=== PATIENT | female | born 1980 | race Caucasian/White ===

== ENCOUNTER → 2017-07-09 | Outpatient (CLI) | payer MEDICAID ==
[~2017-07-09] MED LIST: AMPH15TA2 PO; BACL10TA PO; DIVA500T15 PO; ESCI10TA PO; ESCI10TA55 PO; GABA-488 PO; HYDR-34 PO; HYDR-3714 PO; HYDR50CA3 PO; LITH300C PO; LOXA10CA PO; LOXA5CAP PO; PRAZ1CAP2 PO
--- NOTE | 2017-07-09 09:29 | Diagnostic Imaging Report ---
PROCEDURE: MR imaging cervical spine without contrast. TECHNIQUE: Multiplanar, multisequence MR imaging of the cervical spine was performed without contrast. DATE: 07/09/2017 9:14 AM COMPARISON: MRI cervical spine 01/12/2016. INDICATION: 37-year-old female, neck pain. FINDINGS: There is a mild cervical levocurvature. The anterior to posterior alignment of the cervical spine is unremarkable. There is moderate disc height loss with adjacent degenerative related endplate change at C5-C6. The additional cervical disc heights are well-preserved. The bone marrow signal is otherwise unremarkable. There is no identified abnormal signal within the visualized portions of the cervical spinal cord. C2-C3: There is no disc bulge. The uncovertebral and facet joints are unremarkable. There is no foraminal narrowing. There is no spinal canal stenosis. C3-C4: There is no disc bulge. The uncovertebral and facet joints are unremarkable. There is no foraminal narrowing. There is no spinal canal stenosis. C4-C5: There is no disc bulge. The uncovertebral and facet joints are unremarkable. There is no foraminal narrowing. There is no spinal canal stenosis. C5-C6: There is a small posterior disc osteophyte complex which is eccentric to the left. There are mild left uncovertebral degenerative changes. There is very mild left foraminal narrowing. There is no spinal canal stenosis. C6-C7: There is no disc bulge. The uncovertebral and facet joints are unremarkable. There is no foraminal narrowing. There is no spinal canal stenosis. C7-T1: There is no disc bulge. The uncovertebral and facet joints are unremarkable. There is no foraminal narrowing. There is no spinal canal stenosis. IMPRESSION: 1. C5-C6 small posterior disc osteophyte complex eccentric to the left with mild left uncovertebral degenerative changes causing very mild left foraminal narrowing. Degenerative changes at this level have mildly progressed since 01/12/2016. This is most notable in the region of interval disc height loss and endplate degenerative changes being increased. Dictated by: Dictated on workstation # [id number]
== END ==
LOC: RAD 07:55
PROVIDERS: ATTEND Orthopaedic Surgery
DX: M48.02 Spinal stenosis, cervical region (principal); M47.812 Spondylosis without myelopathy or radiculopathy, cervical region; M50.322 Other cervical disc degeneration at C5-C6 level
CPT/HCPCS: 72141

== ENCOUNTER 2017-09-17 15:52 | Emergency (ER) | payer MEDICAID ==
[~2017-09-17] VITALS: Ht 162.6 cm; Wt 77.1 kg
--- OUTSIDE RECORDS SUMMARY | 2017-09-17 15:58 | XMS REPORT ---
Author FRANCISCO Rudolph [facility] [place] eClinicalWorks Address Unknown Phone Unavailable Care Team Providers Care Business Development Intern Name Role Phone FRANCISCO MCDONNELL CP Unavailable Allergies No Known Allergies Problems Problem Type Condition Code Onset Dates Condition Status Problem PTSD (post-traumatic stress disorder) F43.10 Active Problem ANASTASIA (generalized anxiety disorder) F41.1 Active Problem Bipolar 2 disorder F31.81 Active Problem Intermittent explosive disorder 312.34 Active Problem Generalized anxiety disorder 300.02 Active Medications No Known Medications Results No Known Results Summary Purpose eClinicalWorks Submission
--- OUTSIDE RECORDS SUMMARY | 2017-09-17 15:58 | XMS REPORT ---
Author Author DELONTE LAU [facility] eClinicalWorks Address Unknown Phone Unavailable Care Team Providers Care Manufactured Buildings Supervisor Name Role Phone DELONTE LAU CP Unavailable Allergies No Known Allergies Problems Problem Type Condition Code Onset Dates Condition Status Assessment Other dorsalgia M54.89 Active Problem Intermittent explosive disorder 312.34 Active Problem Generalized anxiety disorder 300.02 Active Problem Other chronic pain G89.29 Active Problem Cigarette nicotine dependence without complication F17.210 Active Problem Lumbago with sciatica, unspecified side M54.40 Active Problem PTSD (post-traumatic stress disorder) F43.10 Active Problem ANASTASIA (generalized anxiety disorder) F41.1 Active Problem Borderline personality disorder in adult F60.3 Active Problem Bipolar 2 disorder F31.81 Active Medications Medication Code System Code Instructions Start Date End Date Status Dosage Hydrocodone-Acetaminophen [facility] 30633222847 7.5-325 MG Orally 3 times a day 1 tablet as needed Results No Known Results Summary Purpose eClinicalWorks Submission
--- OUTSIDE RECORDS SUMMARY | 2017-09-17 15:58 | XMS REPORT ---
Author Author DELONTE LAU [facility] eClinicalWorks Address Unknown Phone Unavailable Care Team Providers Care Qa Auditor Name Role Phone DELONTE LAU CP Unavailable Allergies No Known Allergies Problems Problem Type Condition Code Onset Dates Condition Status Problem Intermittent explosive disorder 312.34 Active Problem [...] Start Date End Date Status Dosage Hydrocodone-Acetaminophen [facility] [id number] 7.5-325 MG Orally 3 times a day 1 tablet as needed Results No Known Results Summary Purpose eClinicalWorks Submission
--- OUTSIDE RECORDS SUMMARY | 2017-09-17 15:58 | XMS REPORT ---
Author Author LAMONTE WOOTEN Organization [facility] Address [address] [place] [address] Care Team Providers Care Metallographer Name Role Phone SUGAR LAMONTE Unavailable PROBLEMS Type Condition ICD9-CM Code VEH32-TD Code Onset Dates Condition Status SNOMED Code Problem Bipolar 2 disorder F31.81 Active 84714424 Problem PTSD (post-traumatic stress disorder) F43.10 Active 44792796 Problem ANASTASIA (generalized anxiety disorder) F41.1 Active 10394557 Problem Chronic post-traumatic stress disorder (PTSD) F43.12 Active 651731329 Problem ADHD (attention deficit hyperactivity disorder), combined type F90.2 Active 20664783 Problem Cigarette nicotine dependence without complication F17.210 Active 63499049 Problem Borderline personality disorder in adult F60.3 Active 74938932 Problem Other chronic pain G89.29 Active 27293926 Problem Lumbago with sciatica, unspecified side M54.40 Active 249490998 ALLERGIES No Information SOCIAL HISTORY Never Assessed PLAN OF CARE VITAL SIGNS MEDICATIONS Medication Instructions Dosage Frequency Start Date End Date Duration Status Hydrocodone-Acetaminophen 7.5-325 MG Orally, must keep appt on 06/17 for more refills 3 times a day 1 tablet 8h May, May, 4 days Active RESULTS No Results PROCEDURES No Known procedures IMMUNIZATIONS No Known Immunizations MEDICAL (GENERAL) HISTORY Type Description Date Medical History attention deficit hyperactivity disorder Medical History depression Medical History back pain Medical History Bipolar 2 disorder, major depressive episode Medical History Unspecified episodic mood disorder Surgical History tubal ligation Surgical History section x2 Surgical History spine surgery (screw, rods, spacer L4-S1) 07/19/2014 Hospitalization History surgeries
--- OUTSIDE RECORDS SUMMARY | 2017-09-17 15:58 | XMS REPORT ---
Author DELONTE Sanchez [facility] eClinicalWorks Address Unknown Phone Unavailable Care Team Providers Care Regulatory Coordinator Name Role Phone DELONTE LAU CP Unavailable Allergies, Adverse Reactions, Alerts Substance Reaction Event Type Penicillin V Potassium Info Not Available Drug Allergy Morphine Sulfate Info Not Available Drug Allergy Cymbalta Anger Drug Allergy Problems Problem Type Condition ICD-9 Code Onset Dates Condition Status Problem Generalized anxiety disorder 300.02 Active Problem Unspecified episodic mood disorder 296.90 Active Problem Intermittent explosive disorder 312.34 Active Assessment Back pain 724.5 Active Medications Medication Code System Code Instructions Start Date End Date Status Dosage Cyclobenzaprine HCl [facility] [address]-53 10 MG Orally Once a day hs Dec 16, 2014 1 tablet HydrOXYzine Pamoate [facility] [address]-41 50 MG Orally 2 times a day for anxiety November 05, 2014 1 capsule Depakote ER [facility] [address]-97 500 MG Orally Once a day November 05, 2014 2 tab Naproxen [facility] [address]-25 375 MG Orally Twice a day Dec 16, 2014 Feb 14, 2015 1 tablet Prazosin HCl [facility] [address]-62 1 MG Orally Once at night for trauma nightmares Nov 26, 2014 1 capsule Hydrocodone-Acetaminophen [facility] [address]-01 7.5-325 MG Orally 3 times a day September 28, 2012 1 tablet as needed Procedures Procedure Coding System Code Date No Charge CPT-4 91771 Dec 16, 2014 Office Visit, Est Pt., Level 2 CPT-4 04501 Dec 16, 2014 Vital Signs Date/Time: Dec 16, 2014 Temperature 98.2 F Weight 172.9 lbs Height 62 in BMI 31.62 Index Blood Pressure Diastolic 88 mmHg Blood Pressure Systolic 132 mmHg Cardiac Monitoring Heart Rate 72 bpm Results No Known Results Summary Purpose eClinicalWorks Submission
--- OUTSIDE RECORDS SUMMARY | 2017-09-17 15:59 | XMS REPORT ---
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 Months Reason: VITAL SIGNS MEDICATIONS Medication Instructions Dosage Frequency Start Date End Date Duration Status Loxapine Succinate 10 MG TAKE TWO CAPSULES BY MOUTH ONCE AT NIGHT Active Prozac 20 mg Orally for depression 1 capsule in the morning Dec, Active HydrOXYzine Pamoate 50 mg Orally 3 times a day for anxiety 1 capsule Active Ibuprofen 800 MG Orally Three times a day, pc 1 tablet 20 Active Baclofen 20 MG TAKE ONE TABLET BY MOUTH THREE TIMES DAILY WITH FOOD OR MILK 30 Active Depakote ER 500 MG TAKE ONE TABLET BY MOUTH TWICE DAILY Active Prazosin HCl 1 MG Orally AT NIGHT FOR TRAUMA NIGHTMARES 3 capsules Active RESULTS No Results PROCEDURES No Known procedures INSTRUCTIONS MEDICATIONS ADMINISTERED No Known Medications MEDICAL (GENERAL) HISTORY Type Description Date Medical History attention deficit hyperactivity disorder Medical History depression Medical History back pain Medical History Bipolar 2 disorder, major depressive episode Medical History Unspecified episodic mood disorder Surgical History tubal ligation Surgical History section x2 Surgical History spine surgery (screw, rods, spacer L4-S1) 07/19/2014 Hospitalization History surgeries
--- OUTSIDE RECORDS SUMMARY | 2017-09-17 15:59 | XMS REPORT ---
Author Author KEITH BRUNO Organization [employer] Address Unknown Phone Unavailable Care Team Providers Care Bulk Tank Car Unloader Name Role Phone KEITH BRUNO CP Unavailable Allergies, Adverse Reactions, Alerts Substance Reaction Event Type Penicillin V Potassium Info Not Available Drug Allergy Morphine Sulfate Info Not Available Drug Allergy Cymbalta Anger Drug Allergy Problems Problem Type Condition Code Onset Dates Condition Status Assessment Well woman exam with routine gynecological exam Z01.419 Active Problem Intermittent explosive disorder 312.34 Active Problem Generalized anxiety disorder 300.02 Active Assessment Screening breast examination Z12.39 Active Assessment Encounter for Papanicolaou smear of cervix Z12.4 Active Problem Other chronic pain G89.29 Active [...] Date End Date Status Dosage Cyclobenzaprine HCl [facility] 33887230527 10 MG Orally Once a day hs 1 tablet [address] [facility] [address]-24 10 MG Orally Once a day July 08, 2015 1 tablet Baclofen [facility] [address]-89 20 Orally Three times a day August 11, 2015 1 tablet with food or milk HydrOXYzine Pamoate [facility] [address]-57 50 mg Orally 2 times a day for anxiety 1 capsule Emerson Carbonate [facility] [address]-31 300 MG Orally Once at bedtime Mar 25, 2015 1 capsule Loxapine Succinate [facility] [address]-25 10 MG Once at night 2 capsules Hydrocodone-Acetaminophen [facility] 20918883813 7.5-325 MG TAKE ONE TABLET BY MOUTH THREE TIMES DAILY NEEDED Prazosin HCl [facility] [address]-33 1 MG Orally Once at night for trauma nightmares 1 capsule Depakote ER [facility] [address]-68 500 MG Orally Once a day at bedtime 1 tablet Procedures Procedure Coding System Code Date Preventive Care Est Pt. Age 18-39 CPT-4 38648 November 12, 2015 SPECIMEN HANDLING CPT-4 15811 November 12, 2015 Vital Signs Date/Time: November 12, 2015 Cardiac Monitoring Heart Rate 88 bpm Weight 169.8 lbs Height 62 in Blood Pressure Diastolic 77 mmHg Blood Pressure Systolic 134 mmHg Results No Known Results Summary Purpose [employer] Submission
--- OUTSIDE RECORDS SUMMARY | 2017-09-17 16:00 | XMS REPORT ---
Author Author DELONTE LAU [facility] [place] [employer] Address Unknown Phone Unavailable Care Team Providers Care Sba Underwriter Name Role Phone DELONTE LAU CP Unavailable Allergies No Known Allergies Problems Problem Type Condition Code Onset Dates Condition Status Problem PTSD (post-traumatic stress disorder) F43.10 Active Problem ANASTASIA (generalized anxiety disorder) F41.1 Active Problem Bipolar 2 disorder F31.81 Active Assessment Other dorsalgia M54.89 Active Problem Intermittent explosive disorder 312.34 Active Problem Generalized anxiety disorder 300.02 Active Medications Medication Code System Code Instructions Start Date End Date Status Dosage Hydrocodone-Acetaminophen [facility] [address]-03 7.5-325 MG Orally 3 times a day September 28, 2012 1 tablet as needed Results No Known Results Summary Purpose [employer] Submission
--- OUTSIDE RECORDS SUMMARY | 2017-09-17 16:00 | XMS REPORT ---
Author Author SOFIE LEDEZMA [facility] [employer] Address Unknown Phone Unavailable Care Team Providers Care Alarm Signal Operator Name Role Phone SOFIE LEDEZMA CP Unavailable Allergies, Adverse Reactions, Alerts Substance Reaction Event Type Penicillin V Potassium Info Not Available Drug Allergy Morphine Sulfate Info Not Available Drug Allergy Cymbalta Anger Drug Allergy Problems Problem Type Condition Code Onset Dates Condition Status Problem Intermittent explosive disorder 312.34 Active Problem Generalized anxiety disorder 300.02 Active Problem Bipolar 2 disorder, major depressive episode 296.89 Active Assessment Generalized anxiety disorder 300.02 Active Assessment Intermittent explosive disorder 312.34 Active Problem Unspecified episodic mood disorder 296.90 Active Assessment Bipolar 2 disorder, major depressive episode 296.89 Active Medications No Known Medications Procedures Procedure Coding System Code Date Psychotherapy, patient &/family, 45 minutes, established patient CPT-4 28726 Mar 24, 2015 Results No Known Results Summary Purpose [employer] Submission
--- OUTSIDE RECORDS SUMMARY | 2017-09-17 16:00 | XMS REPORT ---
Author Author DOMONIQUE BROCK [facility] Address [address] [place] [address] Care Team Providers Care Master Printer Name Role Phone DOMONIQUE BROCK Unavailable PROBLEMS Type Condition ICD9-CM Code [id number] Code Onset Dates Condition Status SNOMED Code Problem Bipolar 2 disorder F31.81 Active 17810826 Problem PTSD (post-traumatic stress disorder) F43.10 Active 87539077 Problem ANASTASIA (generalized anxiety disorder) F41.1 Active 91363465 Problem Chronic post-traumatic stress disorder (PTSD) F43.12 Active 580876250 Problem ADHD (attention deficit hyperactivity disorder), combined type F90.2 Active 76386172 Problem Cigarette nicotine dependence without complication F17.210 Active 61413501 Problem Borderline personality disorder in adult F60.3 Active 34975416 Problem Other chronic pain G89.29 Active 44257976 Problem Lumbago with sciatica, unspecified side M54.40 Active 119919893 ALLERGIES No Information SOCIAL HISTORY Never Assessed PLAN OF CARE Activity Details Follow Up 1 Week Reason: Follow-up VITAL SIGNS MEDICATIONS Unknown Medications RESULTS No Results PROCEDURES Procedure Date Ordered Result Body Site Psychotherapy, patient &/family, 30 minutes, established patient June 30, 2016 IMMUNIZATIONS No Known Immunizations MEDICAL (GENERAL) HISTORY [...]
--- OUTSIDE RECORDS SUMMARY | 2017-09-17 16:00 | XMS REPORT ---
Author Author DOMONIQUE BROCK [facility] Address [address] [place] [address] Care Team Providers Care Processing Analyst Name Role Phone DOMONIQUE BROCK Unavailable PROBLEMS Type Condition ICD9-CM Code [id number] Code Onset Dates Condition Status SNOMED Code Problem Bipolar 2 disorder F31.81 Active 89732175 Problem PTSD (post-traumatic stress disorder) F43.10 Active 10478693 Problem ANASTSAIA (generalized anxiety disorder) F41.1 Active 74913118 Problem Chronic post-traumatic stress disorder (PTSD) F43.12 Active 207023017 Problem ADHD (attention deficit hyperactivity disorder), combined type F90.2 Active 46283601 Problem Cigarette nicotine dependence without complication F17.210 Active 15722254 Problem Borderline personality disorder in adult F60.3 Active 37368890 Problem Other chronic pain G89.29 Active 89581211 Problem Lumbago with sciatica, unspecified side M54.40 Active 787680744 ALLERGIES No Information SOCIAL HISTORY Never Assessed PLAN OF CARE Activity Details Follow Up 2 Weeks Reason: Follow-up VITAL SIGNS MEDICATIONS Unknown Medications RESULTS No Results PROCEDURES Procedure Date Ordered Result Body Site Psychotherapy, patient &/family, 30 minutes, established patient September 14, 2016 IMMUNIZATIONS No Known Immunizations MEDICAL (GENERAL) [...]
--- OUTSIDE RECORDS SUMMARY | 2017-09-17 16:00 | XMS REPORT ---
Author Author FRANCISCO MCDONNELL Organization [facility] Address [address] [place] [address] Care Team Providers Care Industrial Furnace Fabricator Name Role Phone FRANCISCO MCDONNELL Unavailable PROBLEMS Type Condition ICD9-CM Code [id number] Code Onset Dates Condition Status SNOMED Code Problem Bipolar 2 disorder F31.81 Active 36698716 Problem PTSD (post-traumatic stress disorder) F43.10 Active 76283400 Problem ANASTASIA (generalized anxiety disorder) F41.1 Active 64511347 Problem Chronic post-traumatic stress disorder (PTSD) F43.12 Active 788370561 Problem ADHD (attention deficit hyperactivity disorder), combined type F90.2 Active 55904660 Problem Cigarette nicotine dependence without complication F17.210 Active 07460407 Problem Borderline personality disorder in adult F60.3 Active 79359156 Problem Other chronic pain G89.29 Active 22951741 Problem Lumbago with sciatica, unspecified side M54.40 Active 516838204 ALLERGIES No Information SOCIAL HISTORY Never Assessed PLAN OF CARE VITAL SIGNS MEDICATIONS Medication Instructions Dosage Frequency Start Date End Date Duration Status Prazosin HCl 1 MG Orally AT NIGHT FOR TRAUMA NIGHTMARES 3 capsules 30 days Active RESULTS No Results PROCEDURES No [...]
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
--- OUTSIDE RECORDS SUMMARY | 2017-09-17 16:00 | XMS REPORT ---
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 Medications MEDICAL [...]
--- OUTSIDE RECORDS SUMMARY | 2017-09-17 16:00 | XMS REPORT ---
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
--- OUTSIDE RECORDS SUMMARY | 2017-09-17 16:01 | XMS REPORT ---
Author Author DELONTE LAU [facility] eClinicalWorks Address Unknown Phone Unavailable Care Team Providers Care Director Biologics Name Role Phone DELONTE LAU CP Unavailable [...] Start Date End Date Status Dosage Hydrocodone-Acetaminophen [facility] [address]-07 7.5-325 MG Orally 3 times a day September 28, 2012 1 tablet as needed Results No Known Results Summary Purpose eClinicalWorks Submission
--- OUTSIDE RECORDS SUMMARY | 2017-09-17 16:01 | XMS REPORT ---
Author Author FRANCISCO MCDONNELL Organization [facility] Address [address] [place] [address] Care Team Providers Care Overhauler Name Role Phone FRANCISCO MCDONNELL Unavailable PROBLEMS Type Condition ICD9-CM Code [id number] Code Onset Dates Condition Status SNOMED Code Problem Bipolar 2 disorder F31.81 Active 91036667 Problem PTSD (post-traumatic stress disorder) F43.10 Active 08621710 Problem ANASTASIA (generalized anxiety disorder) F41.1 Active 87525967 Problem Chronic post-traumatic stress disorder (PTSD) F43.12 Active 150219809 Problem ADHD (attention deficit hyperactivity disorder), combined type F90.2 Active 27644513 Problem Cigarette nicotine dependence without complication F17.210 Active 06032425 Problem Borderline personality disorder in adult F60.3 Active 10402692 Problem Other chronic pain G89.29 Active 27959767 Problem Lumbago with sciatica, unspecified side M54.40 Active 546274364 ALLERGIES No Information SOCIAL HISTORY Never Assessed PLAN OF CARE VITAL SIGNS MEDICATIONS Unknown Medications RESULTS No Results PROCEDURES No Known procedures [...]
--- OUTSIDE RECORDS SUMMARY | 2017-09-17 16:01 | XMS REPORT ---
Author Author DOMONIQUE BROCK [facility] Address [address] [place] [address] Care Team Providers Care Business Services Manager Name Role Phone DOMONIQUE BROCK Unavailable PROBLEMS Type Condition ICD9-CM Code [id number] Code Onset Dates Condition Status SNOMED Code Problem Bipolar 2 disorder F31.81 Active 37418960 Problem PTSD (post-traumatic stress disorder) F43.10 Active 76405121 Problem ANASTASIA (generalized anxiety disorder) F41.1 Active 87801439 Problem Chronic post-traumatic stress disorder (PTSD) F43.12 Active 776142613 Problem ADHD (attention deficit hyperactivity disorder), combined type F90.2 Active 37477240 Problem Cigarette nicotine dependence without complication F17.210 Active 01510404 Problem Borderline personality disorder in adult F60.3 Active 25294786 Problem Other chronic pain G89.29 Active 44591175 Problem Lumbago with sciatica, unspecified side M54.40 Active 487058740 ALLERGIES No Information SOCIAL HISTORY Never Assessed PLAN OF CARE Activity Details Follow Up 1 Week Reason: Follow-up VITAL SIGNS MEDICATIONS Unknown Medications RESULTS No Results PROCEDURES Procedure Date Ordered Result Body Site Psychotherapy, patient &/family, 30 minutes, established patient Jun 07, 2016 IMMUNIZATIONS No Known Immunizations MEDICAL (GENERAL) [...]
--- OUTSIDE RECORDS SUMMARY | 2017-09-17 16:01 | XMS REPORT ---
Author Author DELONTE LAU [facility] eClinicalWorks Address Unknown Phone Unavailable Care Team Providers Care Maintenance Of Way Superintendent Name Role Phone DELONTE LAU CP Unavailable Allergies No Known Allergies Problems Problem Type Condition Code Onset Dates Condition Status Problem Intermittent explosive disorder 312.34 Active Problem Generalized anxiety disorder 300.02 Active Problem Bipolar 2 disorder, major depressive episode 296.89 Active Problem Unspecified episodic mood disorder 296.90 Active Medications Medication Code System Code Instructions Start Date End Date Status Dosage Naproxen [facility] [address]-00 375 MG Orally Twice a day Dec 16, 2014 1 tablet Results No Known Results Summary Purpose eClinicalWorks Submission
--- OUTSIDE RECORDS SUMMARY | 2017-09-17 16:01 | XMS REPORT ---
Author Author FRANCISCO MCDONNELL Organization [facility] Address [address] [place] [address] Care Team Providers Care Leasing Professional Name Role Phone FRANCISCO MCDONNELL Unavailable PROBLEMS Type Condition ICD9-CM Code EZV80-VJ Code Onset Dates Condition Status SNOMED Code Problem Bipolar 2 disorder F31.81 Active 93781958 Problem PTSD (post-traumatic stress disorder) F43.10 Active 84526067 Problem ANASTASIA (generalized anxiety disorder) F41.1 Active 50574239 Problem ADHD (attention deficit hyperactivity disorder), combined type F90.2 Active 26870464 Problem Chronic posttraumatic stress disorder F43.12 Active 053500861 Problem Lumbago with sciatica, unspecified side M54.40 Active 855951575 Problem Borderline personality disorder in adult F60.3 Active 40190735 Problem Cigarette nicotine dependence without complication F17.210 Active 23475914 Problem Other chronic pain G89.29 Active 85205371 ALLERGIES Substance Reaction Event Type Date Status Penicillin V Potassium Unknown Drug Allergy Apr, Active Morphine Sulfate Unknown Drug Allergy Apr, Active Cymbalta Anger Drug Allergy Apr, Active SOCIAL HISTORY No smoking Hx information available PLAN OF CARE Activity Details Follow Up 3 Months Reason: VITAL SIGNS Height 62 in 2016-04-29 Weight 184.5 lbs 2016-04-29 Heart Rate 92 bpm 2016-04-29 Respiratory Rate 20 2016-04-29 BMI 33.74 kg/m2 2016-04-29 Blood pressure systolic 123 mmHg 2016-04-29 Blood pressure diastolic 91 mmHg 2016-04-29 MEDICATIONS Medication Instructions Dosage Frequency Start Date End Date Duration Status Lexapro 10 MG Orally Once a day 1 tablet 24h Active Baclofen 20 MG TAKE ONE TABLET BY MOUTH THREE TIMES DAILY WITH FOOD OR MILK 10 Active Loxapine Succinate 10 MG TAKE TWO CAPSULES BY MOUTH ONCE AT NIGHT Active Concerta 18 MG Orally for ADHD 1 tablet in the morning Apr, Active Cyclobenzaprine HCl 10 MG Orally Once a day hs 1 tablet 30 Active Baclofen 20 Orally Three times a day 1 tablet with food or milk 8h Jul, Active HydrOXYzine Pamoate 50 mg Orally 3 times a day as needed for anxiety 1 capsule Active Hydrocodone-Acetaminophen 7.5-325 MG Orally 3 times a day 1 tablet as needed 8h Mar, Active Depakote ER 500 MG Orally 2 times a day 1 tablet 12h Active [place] Carbonate 300 MG TAKE ONE CAPSULE BY MOUTH AT BEDTIME Active Prazosin HCl 1 MG TAKE ONE CAPSULE BY MOUTH AT NIGHT FOR TRAUMA NIGHTMARES Active RESULTS No Results PROCEDURES Procedure Date Ordered Related Diagnosis Body Site Office Visit, Est Pt., Level 4 Apr 29, 2016 IMMUNIZATIONS No Known Immunizations
--- OUTSIDE RECORDS SUMMARY | 2017-09-17 16:01 | XMS REPORT ---
Author Author DOMONIQUE BROCK [facility] Address [address] [place] [address] Care Team Providers Care Clinical Education Coordinator Name Role Phone DOMONIQUE BROCK Unavailable PROBLEMS Type Condition ICD9-CM Code [id number] Code Onset Dates Condition Status SNOMED Code Problem Bipolar 2 disorder F31.81 Active 05973939 Problem PTSD (post-traumatic stress disorder) F43.10 Active 42084778 Problem ANASTASIA (generalized anxiety disorder) F41.1 Active 75748009 Problem Chronic post-traumatic stress disorder (PTSD) F43.12 Active 379196447 Problem ADHD (attention deficit hyperactivity disorder), combined type F90.2 Active 45089499 Problem Cigarette nicotine dependence without complication F17.210 Active 05123200 Problem Borderline personality disorder in adult F60.3 Active 52579892 Problem Other chronic pain G89.29 Active 42175449 Problem Lumbago with sciatica, unspecified side M54.40 Active 620824323 ALLERGIES No Information SOCIAL HISTORY Never Assessed PLAN OF CARE Activity Details Follow Up 2 Weeks Reason: Follow-up VITAL SIGNS MEDICATIONS Unknown Medications RESULTS No Results PROCEDURES Procedure Date Ordered Result Body Site Psychotherapy, patient &/family, 45 minutes, established patient September 28, 2016 IMMUNIZATIONS No Known Immunizations MEDICAL (GENERAL) [...]
--- OUTSIDE RECORDS SUMMARY | 2017-09-17 16:01 | XMS REPORT ---
Author Author DELONTE LAU [facility] Address [address] [place] [address] Care Team Providers Care Biofuels Manager Name Role Phone DELONTE LAU Unavailable PROBLEMS Type Condition ICD9-CM Code [id number] Code Onset Dates Condition Status SNOMED Code Problem Bipolar 2 disorder F31.81 Active 33509571 Problem PTSD (post-traumatic stress disorder) F43.10 Active 37646851 Problem ANASTASIA (generalized anxiety disorder) F41.1 Active 06633592 Problem Chronic post-traumatic stress disorder (PTSD) F43.12 Active 319314715 Problem ADHD (attention deficit hyperactivity disorder), combined type F90.2 Active 22642427 Problem Cigarette nicotine dependence without complication F17.210 Active 58601135 Problem Borderline personality disorder in adult F60.3 Active 48762819 Problem Other chronic pain G89.29 Active 20152777 Problem Lumbago with sciatica, unspecified side M54.40 Active 410549489 ALLERGIES No Information SOCIAL HISTORY Never Assessed [...]
--- OUTSIDE RECORDS SUMMARY | 2017-09-17 16:01 | XMS REPORT ---
Author Author DELONTE LAU [facility] eClinicalWorks Address Unknown Phone Unavailable Care Team Providers Care Steam Table Attendant Name Role Phone DELONTE LAU CP Unavailable [...] Date End Date Status Dosage Cyclobenzaprine HCl [facility] 80080404301 10 MG Orally Once a day hs 1 tablet Results No Known Results Summary Purpose eClinicalWorks Submission
--- OUTSIDE RECORDS SUMMARY | 2017-09-17 16:01 | XMS REPORT ---
Author FRANCISCO Rudolph eClinicalWorks Address Unknown Phone Unavailable Care Team Providers Care Educational Paraprofessional Name Role Phone FRANCISCO MCDONNELL CP Unavailable Allergies, Adverse Reactions, Alerts Substance Reaction Event Type Penicillin V Potassium Info Not Available Drug Allergy Morphine Sulfate Info Not Available Drug Allergy Cymbalta Anger Drug Allergy Problems Problem Type Condition Code Onset Dates Condition Status Assessment Bipolar 2 disorder F31.81 Active Problem Intermittent [...] Problem Bipolar 2 disorder F31.81 Active Assessment Borderline personality disorder in adult F60.3 Active Assessment ANASTASIA (generalized anxiety disorder) F41.1 Active Assessment PTSD (post-traumatic stress disorder) F43.10 Active Medications Medication Code System Code Instructions Start Date End Date Status Dosage HydrOXYzine Pamoate [facility] [address]-76 50 mg Orally 2 times a day for anxiety 1 capsule Hydrocodone-Acetaminophen [facility] 43455030516 7.5-325 MG TAKE ONE TABLET BY MOUTH THREE TIMES DAILY NEEDED Stebbins Carbonate [facility] [address]-12 300 MG Orally Once at bedtime Mar 25, 2015 1 capsule Depakote ER [facility] [address]-00 500 MG TAKE ONE TABLET BY MOUTH AT BEDTIME Cyclobenzaprine HCl [facility] 42014667183 10 MG Orally Once a day hs 1 tablet Prazosin HCl [facility] [address]-01 1 MG Orally Once at night for trauma nightmares 1 capsule Baclofen [facility] [address]-85 20 Orally Three times a day August 11, 2015 1 tablet with food or milk Procedures Procedure Coding System Code Date Office Visit, Est Pt., Level 4 CPT-4 06475 Nov 25, 2015 Vital Signs Date/Time: Nov 25, 2015 Cardiac Monitoring Heart Rate 72 bpm Weight 173.3 lbs Height 62 in BMI 31.69 Index Blood Pressure Diastolic 90 mmHg Blood Pressure Systolic 122 mmHg Results No Known Results Summary Purpose eClinicalWorks Submission
[2017-09-17] MEDS ORDERED: NAPR-1071 PO (16:02)
[2017-09-17] MEDS ORDERED: META800T PO (16:02)
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
--- OUTSIDE RECORDS SUMMARY | 2017-09-17 16:02 | XMS REPORT ---
Author Author FRANCISCO MCDONNELL Organization [facility] Address [address] [place] [address] Care Team Providers Care [employer] Name Role Phone FRANCISCO MCDONNELL Unavailable PROBLEMS Type Condition ICD9-CM Code MTT98-AL Code Onset Dates Condition Status SNOMED Code Problem Bipolar 2 disorder F31.81 Active 61224761 Problem PTSD (post-traumatic stress disorder) F43.10 Active 02544462 Problem ANASTASIA (generalized anxiety disorder) F41.1 Active 08846847 Problem Chronic post-traumatic stress disorder (PTSD) F43.12 Active 137673803 Problem ADHD (attention deficit hyperactivity disorder), combined type F90.2 Active 23381739 Problem Cigarette nicotine dependence without complication F17.210 Active 87821200 Problem Borderline personality disorder in adult F60.3 Active 14632066 Problem Other chronic pain G89.29 Active 41634895 Problem Lumbago with sciatica, unspecified side M54.40 Active 133475865 ALLERGIES No Information SOCIAL HISTORY Never Assessed PLAN OF CARE VITAL SIGNS MEDICATIONS Medication Instructions Dosage Frequency Start Date End Date Duration Status Concerta 18 MG Orally for ADHD 1 tablet in the morning Jun, 28 days Active RESULTS No Results PROCEDURES No [...]
--- OUTSIDE RECORDS SUMMARY | 2017-09-17 16:02 | XMS REPORT ---
Author DELONTE Sanchez [facility] eClinical[employer] Address Unknown Phone Unavailable Care Team Providers Care Value Stream Coach Name Role Phone DELONTE LAU Unavailable Allergies, Adverse Reactions, Alerts Substance Reaction [...] Unspecified episodic mood disorder 296.90 Active Assessment Nicotine dependence F17.200 Active Medications Medication Code System Code Instructions Start Date End Date Status Dosage HydrOXYzine Pamoate [facility] [address]-41 50 MG Orally 2 times a day for anxiety November 05, 2014 1 capsule Hydrocodone-Acetaminophen [facility] [address]-25 7.5-325 MG Orally 3 times a day September 28, 2012 1 tablet as needed Nicoderm CQ [facility] [address]-41 14 MG/24HR Transdermal Once a day Jan 27, 2015 1 patch to skin Lamictal [facility] [address]-08 25 MG Orally Once at HS for 2 weeks then increase to 2 tabs at HS and continue Jan 21, 2015 1 tablet Prazosin HCl [facility] [address]-88 1 MG Orally Once at night for trauma nightmares Nov 26, 2014 1 capsule Cyclobenzaprine HCl [facility] 43755243306 10 MG Orally Once a day hs 1 tablet Loxapine Succinate [facility] [address]-36 10 MG Orally 1 tab in the AM and 2 tabs at HS Dec 19, 2014 1 capsule Naproxen [facility] [address]-20 375 MG Orally Twice a day Dec 16, 2014 Feb 14, 2015 1 tablet Procedures Procedure Coding System Code Date Office Visit, Est Pt., Level 2 CPT-4 20771 Jan 27, 2015 Vital Signs Date/Time: Jan 27, 2015 Temperature 98.0 F Weight 177 lbs Height 62 in BMI 32.37 Index Blood Pressure Diastolic 78 mmHg Blood Pressure Systolic 118 mmHg Cardiac Monitoring Heart Rate 78 bpm Results No Known Results Summary Purpose eClinicalWorks Submission
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
--- OUTSIDE RECORDS SUMMARY | 2017-09-17 16:02 | XMS REPORT ---
Author Author DOMONIQUE BROCK [facility] Address [address] [place] [address] Care Team Providers Care Shake Maker Name Role Phone DOMONIQUE BROCK Unavailable PROBLEMS Type Condition ICD9-CM Code [id number] Code Onset Dates Condition Status SNOMED Code Problem Bipolar 2 disorder F31.81 Active 86016690 Problem PTSD (post-traumatic stress disorder) F43.10 Active 18302072 Problem ANASTASIA (generalized anxiety disorder) F41.1 Active 38760240 Problem Chronic post-traumatic stress disorder (PTSD) F43.12 Active 280183260 Problem ADHD (attention deficit hyperactivity disorder), combined type F90.2 Active 00981599 Problem Cigarette nicotine dependence without complication F17.210 Active 86487708 Problem Borderline personality disorder in adult F60.3 Active 70179872 Problem Other chronic pain G89.29 Active 87111372 Problem Lumbago with sciatica, unspecified side M54.40 Active 583196385 ALLERGIES No Information SOCIAL HISTORY Never Assessed [...]
[2017-09-17] MEDS: ORPHENADRINE 60 MG/2 ML (NORFLEX) AMP IM ONE (16:03)
[2017-09-17] MEDS: KETOROLAC 60 MG/2 ML VIAL IM ONE (16:03)
--- NOTE | 2017-09-17 16:03 | ED Back Pain ---
General Chief Complaint: Back Problems Stated Complaint: BACK PAIN Nursing Triage Note: c/o increased back pain Nursing Sepsis Screen: No Definite Risk Source of Information: Patient Exam Limitations: No Limitations History of Present Illness Date Seen by Provider: September 17, 2017 Time Seen by Provider: 16:00 Initial Comments To ER with reports of thoracic back pain since cleaning her house last night. 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 She states that she had back surgery about a year ago. She cleaned her house yesterday and believes she overdid it now she has pain. Location: Paraspinous Muscles, T-Spine Timing/Duration: 1-2 Days Severity: Moderate Pain/Injury Location: Back Allergies and Home Medications Allergies Coded Allergies: NKANo Known Allergies (Verified Allergy, Unknown, 12/30/05) morphine (Unverified Allergy, Unknown, 02/04/16) Home Medications Baclofen 10 Mg Tablet, 20 MG PO TID, (Reported) Divalproex Sodium 500 Mg Tab.er.24h, 500 MG PO HS, (Reported) Escitalopram Oxalate 10 Mg Tablet, 10 MG PO DAILY, (Reported) Hydrocodone Bit/Acetaminophen 1 Each Tablet, 1 TAB PO TID PRN for PAIN, ( Reported) Hydroxyzine Pamoate 50 Mg Capsule, 50 MG PO BID PRN for ANXIETY, (Reported) [place] Carbonate 300 Mg Capsule, 300 MG PO HS, (Reported) Loxapine Succinate 10 Mg Capsule, 20 MG PO HS, (Reported) TAKES 2 (10 MG) CAPSULES Prazosin HCl 1 Mg Capsule, 1 MG PO HS PRN for TRAMATIC NIGHTMARES, (Reported) Patient Home Medication List Home Medication List Reviewed: Yes Constitutional: see HPI EENTM: see HPI Respiratory: no symptoms reported Cardiovascular: no symptoms reported Musculoskeletal: see HPI, back pain Skin: no symptoms reported Psychiatric/Neurological: No Symptoms Reported Past Elwivgy-Noqwyk-Ulhvdj Hx Patient Social History Alcohol Use: Occasionally Uses Recreational Drug Use: No Smoking Status: Current Everyday Smoker Type Used: Cigarettes Recent Foreign Travel: No Contact w/Someone Who Travel: No Recent Infectious Disease Expo: No Recent Hopitalizations: No Physical Abuse: No Sexual Abuse: No Past Medical History Surgeries: Yes (BACK) Section Respiratory: No Cardiac: Yes Hypertension Neurological: Yes Gastrointestinal: No Musculoskeletal: Yes Chronic Back Pain Endocrine: No Cancer: No Psychosocial: Yes ADD/ADHD, Anxiety, Suicide Attempts, Bipolar, Depression Nursing Suicide Risk Score: 0 Integumentary: No Blood Disorders: No Physical Exam Vital Signs Vital Signs - First Documented 09/17/17 15:56 Temp 98.0 Pulse 121 Resp 18 B/P (MAP) 138/91 (107) Capillary Refill : Less Than 3 Seconds General Appearance: No Apparent Distress, WD/WN HEENT: PERRL/EOMI, TMs Normal Neck: Full Range of Motion, Normal Inspection Respiratory: Normal Breath Sounds, No Accessory Muscle Use, No Respiratory Distress Gastrointestinal: Normal Bowel Sounds, Non Tender, Soft Extremity: Normal Capillary Refill, Normal Inspection Neurologic/Psychiatric: Alert, Oriented x3 Procedures/Interventions Suture Size: 4-0 Progress/Results/Core Measures Results/Orders My Orders Orders - HANS WEIR APRN Ketorolac Injection (Toradol Injection) (09/17/17 16:00) Orphenadrine Injection (Norflex Injectio (09/17/17 16:00) Vital Signs/I&O 09/17/17 15:56 Temp 98.0 Pulse 121 Resp 18 B/P (MAP) 138/91 (107) Blood Pressure Mean: 107 Departure Impression Primary Impression: Thoracic back pain Disposition: 01 HOME, SELF-CARE Condition: Improved Departure-Patient Inst. Decision time for Depature: 16:01 Referrals: DELONTE LAU MD (PCP/Family) Primary Care Physician Patient Instructions: Upper Back Pain (DC) Add. Discharge Instructions: 1. Return to ER for any concerns 2. Follow-up with your doctor next week 3. All discharge instructions reviewed with patient and/or family. Voiced understanding. Scripts Naproxen (Naprosyn) 500 Mg Tablet 500 MG PO BID PRN for PAIN-MODERATE TO SEVERE, #14 TAB Prov: HANS WEIR APRN 09/17/17 Metaxalone (Metaxalone) 800 Mg Tablet 800 MG PO Q8H PRN for PAIN-MODERATE TO SEVERE, #20 TAB Prov: HANS WEIR APRN 09/17/17 HANS WEIR APRN September 17, 2017 16:03
--- OUTSIDE RECORDS SUMMARY | 2017-09-17 16:03 | XMS REPORT ---
Author Author DELONTE LAU [facility] eClinicalWorks Address Unknown Phone Unavailable Care Team Providers Care Moose Hunter Name Role Phone DELONTE LAU CP Unavailable [...] Start Date End Date Status Dosage Hydrocodone-Acetaminophen [facility] [id number] 7.5-325 MG Orally 3 times a day 1 tablet as needed Results No Known Results Summary Purpose eClinicalWorks Submission
--- OUTSIDE RECORDS SUMMARY | 2017-09-17 16:03 | XMS REPORT ---
Author Author DELONTE LAU [facility] eClinicalWorks Address Unknown Phone Unavailable Care Team Providers Care Dry Cleaner Hand Name Role Phone DELONTE LAU CP Unavailable Allergies No Known Allergies Problems Problem Type Condition Code Onset Dates Condition Status Problem Intermittent explosive disorder 312.34 Active Problem Generalized anxiety disorder 300.02 Active Problem Bipolar 2 disorder, major depressive episode 296.89 Active Problem Unspecified episodic mood disorder 296.90 Active Medications Medication Code System Code Instructions Start Date End Date Status Dosage Hydrocodone-Acetaminophen [facility] [address]-80 7.5-325 MG Orally 3 times a day September 28, 2012 1 tablet as needed Results No Known Results Summary Purpose eClinicalWorks Submission
--- OUTSIDE RECORDS SUMMARY | 2017-09-17 16:03 | XMS REPORT ---
Author Author DOMONIQUE BROCK [facility] Address [address] [place] [address] Care Team Providers Care Barrel Coater Name Role Phone DOMONIQUE BROCK Unavailable PROBLEMS Type Condition ICD9-CM Code [id number] Code Onset Dates Condition Status SNOMED Code Problem Bipolar 2 disorder F31.81 Active 97601288 Problem PTSD (post-traumatic stress disorder) F43.10 Active 07774062 Problem ANASTASIA (generalized anxiety disorder) F41.1 Active 88459047 Problem Chronic post-traumatic stress disorder (PTSD) F43.12 Active 563525696 Problem ADHD (attention deficit hyperactivity disorder), combined type F90.2 Active 97201234 Problem Cigarette nicotine dependence without complication F17.210 Active 30951311 Problem Borderline personality disorder in adult F60.3 Active 94721063 Problem Other chronic pain G89.29 Active 76047924 Problem Lumbago with sciatica, unspecified side M54.40 Active 913988296 ALLERGIES No Information SOCIAL HISTORY Never Assessed PLAN OF CARE Activity Details Follow Up 2 Weeks Reason: Follow-up VITAL SIGNS MEDICATIONS Unknown Medications RESULTS No Results PROCEDURES Procedure Date Ordered Result Body Site Psychotherapy, patient &/family, 45 minutes, established patient Jun 22, 2016 IMMUNIZATIONS No Known Immunizations MEDICAL (GENERAL) [...]
--- OUTSIDE RECORDS SUMMARY | 2017-09-17 16:03 | XMS REPORT ---
Author Author DELONTE LAU [facility] Address [address] [place] [address] Care Team Providers Care Esl Tutor Name Role Phone DELONTE LAU Unavailable PROBLEMS Type Condition ICD9-CM Code [id number] Code Onset Dates Condition Status SNOMED Code Problem Bipolar 2 disorder F31.81 Active 42232601 Problem PTSD (post-traumatic stress disorder) F43.10 Active 61274518 Problem ANASTASIA (generalized anxiety disorder) F41.1 Active 43378378 Problem Chronic post-traumatic stress disorder (PTSD) F43.12 Active 653624106 Problem ADHD (attention deficit hyperactivity disorder), combined type F90.2 Active 53219944 Problem Cigarette nicotine dependence without complication F17.210 Active 21849439 Problem Borderline personality disorder in adult F60.3 Active 38214678 Problem Other chronic pain G89.29 Active 16022337 Problem Lumbago with sciatica, unspecified side M54.40 Active 298969715 ALLERGIES Substance Reaction Event Type Date Status Penicillin V Potassium Unknown Drug Allergy May, Active Morphine Sulfate Unknown Drug Allergy May, Active Cymbalta Anger Drug Allergy May, Active SOCIAL HISTORY Never Assessed PLAN OF CARE Activity Details Follow Up 3 Months Reason: VITAL SIGNS Height 62 in 2016-06-17 Weight 193 lbs 2016-06-17 Temperature 98.0 degrees Fahrenheit 2016-06-17 Heart Rate 102 bpm 2016-06-17 Respiratory Rate 24 2016-06-17 BMI 35.30 kg/m2 2016-06-17 Blood pressure systolic 146 mmHg 2016-06-17 Blood pressure diastolic 100 mmHg 2016-06-17 MEDICATIONS Medication Instructions Dosage Frequency Start Date End Date Duration Status Prazosin HCl 1 MG TAKE ONE CAPSULE BY MOUTH AT NIGHT FOR TRAUMA NIGHTMARES Active Loxapine Succinate 10 MG TAKE TWO CAPSULES BY MOUTH ONCE AT NIGHT Active Depakote ER 500 MG Orally 2 times a day 1 tablet 12h Active Baclofen 20 Orally Three times a day 1 tablet with food or milk 8h Jul, Active HydrOXYzine Pamoate 50 mg Orally 3 times a day as needed for anxiety 1 capsule Active Hydrocodone-Acetaminophen 7.5-325 MG Orally, must keep appt on 06/17 for more refills 3 times a day 1 tablet 8h May, Jun, 28 days Active Baclofen 20 MG TAKE ONE TABLET BY MOUTH THREE TIMES DAILY WITH FOOD OR MILK 10 Active Lexapro 10 MG Orally Once a day 1 tablet 24h Active Nicorette 4 MG Mouth/Throat 24 time(s) a day 1 piece as needed May, May, 0 days Active Concerta 18 MG Orally for ADHD 1 tablet in the morning May, 28 days Active RESULTS No Results PROCEDURES Procedure Date Ordered Result Body Site VENIPUNCT, ROUTINE* Jun 17, 2016 IMMUNIZATIONS No Known Immunizations MEDICAL (GENERAL) [...]
--- OUTSIDE RECORDS SUMMARY | 2017-09-17 16:03 | XMS REPORT ---
Author Author DELONTE LAU [facility] Address [address] [place] [address] Care Team Providers Care Green Building Materials Designer Name Role Phone DELONTE LAU Unavailable PROBLEMS Type Condition ICD9-CM Code [id number] Code Onset Dates Condition Status SNOMED Code Problem Bipolar 2 disorder F31.81 Active 61776971 Problem PTSD (post-traumatic stress disorder) F43.10 Active 34396623 Problem ANASTASIA (generalized anxiety disorder) F41.1 Active 32192309 Problem Chronic post-traumatic stress disorder (PTSD) F43.12 Active 074666551 Problem ADHD (attention deficit hyperactivity disorder), combined type F90.2 Active 63406197 Problem Cigarette nicotine dependence without complication F17.210 Active 68272411 Problem Borderline personality disorder in adult F60.3 Active 07260978 Problem Other chronic pain G89.29 Active 10052222 Problem Lumbago with sciatica, unspecified side M54.40 Active 354452308 ALLERGIES No Information SOCIAL HISTORY Never Assessed PLAN OF CARE VITAL SIGNS MEDICATIONS Medication Instructions Dosage Frequency Start Date End Date Duration Status Hydrocodone-Acetaminophen 7.5-325 MG Orally, must keep appt on 06/14 for more refills 3 times a day 1 tablet 8h May, May, 5 days Active RESULTS No Results PROCEDURES No [...]
--- OUTSIDE RECORDS SUMMARY | 2017-09-17 16:03 | XMS REPORT ---
Author Author DOMONIQUE BROCK [facility] Address [address] [place] [address] Care Team Providers Care Pelletising Extruder Operator Name Role Phone DOMONIQUE BROCK Unavailable PROBLEMS Type Condition ICD9-CM Code [id number] Code Onset Dates Condition Status SNOMED Code Problem Bipolar 2 disorder F31.81 Active 07128629 Problem PTSD (post-traumatic stress disorder) F43.10 Active 80036385 Problem ANASTASIA (generalized anxiety disorder) F41.1 Active 23533253 Problem Chronic post-traumatic stress disorder (PTSD) F43.12 Active 631563196 Problem ADHD (attention deficit hyperactivity disorder), combined type F90.2 Active 01065272 Problem Cigarette nicotine dependence without complication F17.210 Active 22649030 Problem Borderline personality disorder in adult F60.3 Active 39690908 Problem Other chronic pain G89.29 Active 40059153 Problem Lumbago with sciatica, unspecified side M54.40 Active 524165325 ALLERGIES No Information SOCIAL HISTORY Never Assessed PLAN OF CARE Activity Details Follow Up 1 Week Reason: Follow-up VITAL SIGNS MEDICATIONS Unknown Medications RESULTS No Results PROCEDURES Procedure Date Ordered Result Body Site Psychotherapy, patient &/family, 45 minutes, established patient Jun 14, 2016 IMMUNIZATIONS No Known Immunizations MEDICAL [...]
--- OUTSIDE RECORDS SUMMARY | 2017-09-17 16:03 | XMS REPORT ---
Author FRANCISCO Rudolph eClinicalWorks Address Unknown Phone Unavailable Care Team Providers Care Press Reader Name Role Phone FRANCISCO MCDONNELL CP Unavailable Allergies, Adverse Reactions, Alerts Substance Reaction Event Type Penicillin V Potassium Info Not Available Drug Allergy Morphine Sulfate Info Not Available Drug Allergy Cymbalta Anger Drug Allergy Problems Problem Type Condition Code Onset Dates Condition Status Assessment PTSD (post-traumatic stress disorder) F43.10 Active Assessment Encounter for long-term (current) use of other medications Z79.899 Active Problem PTSD (post-traumatic stress disorder) F43.10 Active Problem ANASTASIA (generalized anxiety disorder) F41.1 Active Problem Bipolar 2 disorder F31.81 Active Assessment Bipolar 2 disorder F31.81 Active Assessment ANASTASIA (generalized anxiety disorder) F41.1 Active Problem Intermittent explosive disorder 312.34 Active Problem Generalized anxiety disorder 300.02 Active Medications Medication Code System Code Instructions Start Date End Date Status Dosage Loxapine Succinate [facility] [address]-82 10 MG Orally Once a day at bedtime Dec 19, 2014 3 capsule Nicoderm CQ [facility] [address]-38 14 MG/24HR Transdermal Once a day Jan 27, 2015 1 patch to skin Cyclobenzaprine HCl [facility] 42045821260 10 MG Orally Once a day hs 1 tablet Depakote ER [facility] [address]-24 500 MG Orally Once a day at bedtime 1 tablet HydrOXYzine Pamoate [facility] [address]-10 50 MG Orally 2 times a day for anxiety 1 capsule Naproxen [facility] [address]-45 375 MG Orally Twice a day Dec 16, 2014 1 tablet [place] Carbonate [facility] [address]-32 300 MG Orally 2 times a day Mar 25, 2015 1 capsule Hydrocodone-Acetaminophen [facility] [address]-05 7.5-325 MG Orally 3 times a day September 28, 2012 1 tablet as needed Prazosin HCl [facility] 53737060278 1 MG Orally Once at night for trauma nightmares 1 capsule Procedures Procedure Coding System Code Date Psychotherapy, patient &/family, with E&M, 30 minutes, established patient CPT -4 55687 Apr 29, 2015 Office Visit, Est Pt., Level 4 CPT-4 67236 Apr 29, 2015 Vital Signs Date/Time: Apr 29, 2015 Cardiac Monitoring Heart Rate 76 bpm Weight 178.5 lbs Height 62 in BMI 32.64 Index Blood Pressure Diastolic 95 mmHg Blood Pressure Systolic 130 mmHg Results No Known Results Summary Purpose eClinicalWorks Submission
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
--- OUTSIDE RECORDS SUMMARY | 2017-09-17 16:04 | XMS REPORT ---
Author Author FRANCISCO MCDONNELL Organization [facility] Address [address] [place] [address] Care Team Providers Care Change Management Director Name Role Phone FRANCISCO MCDONNELL Unavailable PROBLEMS Type Condition ICD9-CM Code [id number] Code Onset Dates Condition Status SNOMED Code Problem Bipolar 2 disorder F31.81 Active 87337172 Problem PTSD (post-traumatic stress disorder) F43.10 Active 06336352 Problem ANASTASIA (generalized anxiety disorder) F41.1 Active 99540048 Problem Chronic post-traumatic stress disorder (PTSD) F43.12 Active 680294743 Problem ADHD (attention deficit hyperactivity disorder), combined type F90.2 Active 51417681 Problem Cigarette nicotine dependence without complication F17.210 Active 01483757 Problem Borderline personality disorder in adult F60.3 Active 85685562 Problem Other chronic pain G89.29 Active 36551772 Problem Lumbago with sciatica, unspecified side M54.40 Active 781951273 ALLERGIES No Information SOCIAL HISTORY Never Assessed PLAN OF CARE VITAL SIGNS MEDICATIONS Medication Instructions Dosage Frequency Start Date End Date Duration Status Prazosin HCl 1 MG Orally, with 2mg capsule AT NIGHT FOR TRAUMA NIGHTMARES 1 capsules Active RESULTS No Results PROCEDURES No [...]
--- OUTSIDE RECORDS SUMMARY | 2017-09-17 16:04 | XMS REPORT ---
Author FRANCISCO Rudolph eClinical[employer] Address Unknown Phone Unavailable Care Team Providers Care Banquet Prep Cook Name Role Phone FRANCISCO MCDONNELL CP Unavailable Allergies No Known Allergies Problems Problem Type Condition Code Onset Dates Condition Status Problem PTSD (post-traumatic stress disorder) F43.10 Active Problem ANASTASIA (generalized anxiety disorder) F41.1 Active Problem Bipolar 2 disorder F31.81 Active Assessment Bipolar 2 disorder F31.81 Active Problem Intermittent explosive disorder 312.34 Active Problem Generalized anxiety disorder 300.02 Active Medications No Known Medications Procedures Procedure Coding System Code Date ASSAY OF LITHIUM CPT-4 18467 May 06, 2015 COMPREHEN METABOLIC PANEL CPT-4 37111 May 06, 2015 ASSAY THYROID STIM HORMONE CPT-4 89837 May 06, 2015 VENIPUNCT, ROUTINE* CPT-4 26086 May 06, 2015 Results Name Result Date Reference Range Unit Abnormality Flag ROUTINE VENIPUNCTURE Summary Purpose eClinicalWorks Submission
--- OUTSIDE RECORDS SUMMARY | 2017-09-17 16:04 | XMS REPORT ---
Author Author DELONTE LAU [facility] Address [address] [place] [address] Care Team Providers Care Molding Plasterer Name Role Phone DELONTE LAU Unavailable PROBLEMS Type Condition ICD9-CM Code [id number] Code Onset Dates Condition Status SNOMED Code Problem Bipolar 2 disorder F31.81 Active 91629603 Problem PTSD (post-traumatic stress disorder) F43.10 Active 90778709 Problem ANASTASIA (generalized anxiety disorder) F41.1 Active 40586878 Problem Chronic post-traumatic stress disorder (PTSD) F43.12 Active 593010675 Problem ADHD (attention deficit hyperactivity disorder), combined type F90.2 Active 95454159 Problem Cigarette nicotine dependence without complication F17.210 Active 00550112 Problem Borderline personality disorder in adult F60.3 Active 34859443 Problem Other chronic pain G89.29 Active 09064001 Problem Lumbago with sciatica, unspecified side M54.40 Active 218963675 ALLERGIES Substance Reaction Event Type Date Status Penicillin V Potassium Unknown Drug Allergy Jun, Active Morphine Sulfate Unknown Drug Allergy Jun, Active Cymbalta Anger Drug Allergy Jun, Active SOCIAL HISTORY Never Assessed PLAN OF CARE Activity Details Follow Up Routine appt Reason: VITAL SIGNS Height 62 in 2016-06-28 Weight 196.5 lbs 2016-06-28 Temperature 98.4 degrees Fahrenheit 2016-06-28 Heart Rate 80 bpm 2016-06-28 Respiratory Rate 18 2016-06-28 BMI 35.94 kg/m2 2016-06-28 Blood pressure systolic 136 mmHg 2016-06-28 Blood pressure diastolic 86 mmHg 2016-06-28 MEDICATIONS Medication Instructions Dosage Frequency Start Date End Date Duration Status Depakote ER 500 MG Orally 2 times a day 1 tablet 12h Active HydrOXYzine Pamoate 50 mg Orally 3 times a day as needed for anxiety 1 capsule Active Baclofen 20 Orally Three times a day 1 tablet with food or milk 8h Jul, Active Concerta 18 MG Orally for ADHD 1 tablet in the morning Jun, 28 days Active Ibuprofen 800 MG Orally Three times a day, pc 1 tablet Jun, Jul, 20 days Active Lexapro 10 MG Orally Once a day 1 tablet 24h Active Loxapine Succinate 10 MG TAKE TWO CAPSULES BY MOUTH ONCE AT NIGHT Active MS Contin 15 MG Orally every 12 hrs 1 tablet 12h Jun, Jun, 10 days Active Hydrocodone-Acetaminophen 7.5-325 MG Orally, must keep appt on 06/17 for more refills 3 times a day 1 tablet 8h May, Jun, 28 days Active Prazosin HCl 1 MG TAKE ONE CAPSULE BY MOUTH AT NIGHT FOR TRAUMA NIGHTMARES Active RESULTS No Results PROCEDURES No Known [...]
--- OUTSIDE RECORDS SUMMARY | 2017-09-17 16:04 | XMS REPORT ---
Author Author DELONTE LAU [facility] Address [address] [place] [address] Care Team Providers Care Pinmaker Name Role Phone DELONTE LAU Unavailable PROBLEMS Type Condition ICD9-CM Code [id number] Code Onset Dates Condition Status SNOMED Code Problem Bipolar 2 disorder F31.81 Active 84573013 Problem PTSD (post-traumatic stress disorder) F43.10 Active 69294708 Problem ANASTASIA (generalized anxiety disorder) F41.1 Active 91645045 Problem Chronic post-traumatic stress disorder (PTSD) F43.12 Active 883616601 Problem ADHD (attention deficit hyperactivity disorder), combined type F90.2 Active 00089753 Problem Cigarette nicotine dependence without complication F17.210 Active 61066834 Problem Borderline personality disorder in adult F60.3 Active 20599173 Problem Other chronic pain G89.29 Active 23712495 Problem Lumbago with sciatica, unspecified side M54.40 Active 897202083 ALLERGIES No Information SOCIAL HISTORY Never Assessed [...]
--- OUTSIDE RECORDS SUMMARY | 2017-09-17 16:04 | XMS REPORT ---
Author DELONTE Sanchez [facility] eClinicalWorks Address Unknown Phone Unavailable Care Team Providers Care Yoke Presser Name Role Phone DELONTE LAU Unavailable Allergies, Adverse Reactions, Alerts Substance Reaction Event Type Penicillin V Potassium Info Not Available Drug Allergy Morphine Sulfate Info Not Available Drug Allergy Cymbalta Anger Drug Allergy Problems Problem Type Condition Code Onset Dates Condition Status Problem PTSD (post-traumatic stress disorder) F43.10 Active Problem ANASTASIA (generalized anxiety disorder) F41.1 Active Problem Bipolar 2 disorder F31.81 Active Assessment Lumbar strain S39.012A Active Problem Intermittent explosive disorder 312.34 Active Problem Generalized anxiety disorder 300.02 Active Medications Medication Code System Code Instructions Start Date End Date Status Dosage Prazosin HCl [facility] [address]-30 1 MG Orally Once at night for trauma nightmares 1 capsule HydrOXYzine Pamoate [facility] [address]-10 50 mg Orally 2 times a day for anxiety 1 capsule [place] Carbonate [facility] [address]-57 300 MG Orally Once at bedtime Mar 25, 2015 1 capsule Nicoderm CQ [facility] [address]-13 14 MG/24HR Transdermal Once a day Jan 27, 2015 1 patch to skin Depakote ER [facility] [address]-24 500 MG Orally Once a day at bedtime 1 tablet Loxapine Succinate [facility] [address]-25 10 MG Once at night 2 capsules Lexapro [facility] [address]-53 10 MG Orally Once a day July 08, 2015 1 tablet Baclofen [facility] [address]-73 10 mg Orally Three times a day August 11, 2015 1 tablet with food or milk Cyclobenzaprine HCl [facility] 23510592467 10 MG Orally Once a day hs 1 tablet Hydrocodone-Acetaminophen [facility] [address]-28 7.5-325 MG Orally 3 times a day September 28, 2012 1 tablet as needed Procedures Procedure Coding System Code Date TORADOL (IM) 60 MG/2ML (UP TO 15 MG) CPT-4 J1885 August 11, 2015 THER/PROPH/DIAG INJ, SC/IM CPT-4 87513 August 11, 2015 Office Visit, Est Pt., Level 3 CPT-4 89508 August 11, 2015 Vital Signs Date/Time: August 11, 2015 Temperature 98.1 F Weight 181.4 lbs Height 62 in BMI 33.17 Index Blood Pressure Diastolic 110 mmHg Blood Pressure Systolic 158 mmHg Cardiac Monitoring Heart Rate 84 bpm Results No Known Results Summary Purpose eClinicalWorks Submission
--- OUTSIDE RECORDS SUMMARY | 2017-09-17 16:04 | XMS REPORT ---
Author Author DOMONIQUE BROCK [facility] Address [address] [place] [address] Care Team Providers Care Book Cutter Name Role Phone DOMONIQUE BROCK Unavailable PROBLEMS Type Condition ICD9-CM Code NUX88-YG Code Onset Dates Condition Status SNOMED Code Problem Bipolar 2 disorder F31.81 Active 08730473 Problem PTSD (post-traumatic stress disorder) F43.10 Active 46725898 Problem ANASTASIA (generalized anxiety disorder) F41.1 Active 48926773 Problem Chronic post-traumatic stress disorder (PTSD) F43.12 Active 325386114 Problem ADHD (attention deficit hyperactivity disorder), combined type F90.2 Active 46702656 Problem Cigarette nicotine dependence without complication F17.210 Active 79272273 Problem Borderline personality disorder in adult F60.3 Active 48704864 Problem Other chronic pain G89.29 Active 13181307 Problem Lumbago with sciatica, unspecified side M54.40 Active 796359968 ALLERGIES Unknown Allergies SOCIAL HISTORY No smoking Hx information available PLAN OF CARE Activity Details Follow Up Next Available and manager flight operations in list Reason:BH Follow-up VITAL SIGNS MEDICATIONS Unknown Medications RESULTS No Results PROCEDURES Procedure Date Ordered Related Diagnosis Body Site Psych diagnostic evaluation, established patient May 25, 2016 IMMUNIZATIONS No Known Immunizations
--- OUTSIDE RECORDS SUMMARY | 2017-09-17 16:04 | XMS REPORT ---
Author Author DELONTE LAU [facility] eClinicalWorks Address Unknown Phone Unavailable Care Team Providers Care Lumber Puller Name Role Phone DELONTE LAU CP Unavailable Allergies No Known Allergies Problems Problem Type Condition ICD-9 Code Onset Dates Condition Status Problem Generalized anxiety disorder 300.02 Active Problem Unspecified episodic mood disorder 296.90 Active Problem Intermittent explosive disorder 312.34 Active Medications No Known Medications Results No Known Results Summary Purpose eClinicalWorks Submission
--- OUTSIDE RECORDS SUMMARY | 2017-09-17 16:04 | XMS REPORT ---
Author Author DELONTE LAU [facility] eClinicalWorks Address Unknown Phone Unavailable Care Team Providers Care Shank Threader Name Role Phone DELONTE LAU CP Unavailable Allergies No Known Allergies Problems Problem Type Condition Code Onset Dates Condition Status Problem Intermittent explosive disorder 312.34 Active Problem Generalized anxiety disorder 300.02 Active Problem Bipolar 2 disorder, major depressive episode 296.89 Active Problem Unspecified episodic mood disorder 296.90 Active Medications Medication Code System Code Instructions Start Date End Date Status Dosage Hydrocodone-Acetaminophen [facility] [address]-66 7.5-325 MG Orally 3 times a day September 28, 2012 1 tablet as needed Results No Known Results Summary Purpose eClinicalWorks Submission
--- OUTSIDE RECORDS SUMMARY | 2017-09-17 16:04 | XMS REPORT ---
Author Author DELONTE LAU [facility] Address [address] [place] [address] Care Team Providers Care Budget And Policy Analyst Name Role Phone DELONTE LAU Unavailable PROBLEMS Type Condition ICD9-CM Code NAZ77-CI Code Onset Dates Condition Status SNOMED Code Problem Bipolar 2 disorder F31.81 Active 22238349 Problem PTSD (post-traumatic stress disorder) F43.10 Active 96263751 Problem ANASTASIA (generalized anxiety disorder) F41.1 Active 47786339 Problem Chronic post-traumatic stress disorder (PTSD) F43.12 Active 342644557 Problem ADHD (attention deficit hyperactivity disorder), combined type F90.2 Active 69127526 Problem Cigarette nicotine dependence without complication F17.210 Active 16052438 Problem Borderline personality disorder in adult F60.3 Active 97581941 Problem Other chronic pain G89.29 Active 02828112 Problem Lumbago with sciatica, unspecified side M54.40 Active 793207016 ALLERGIES No Information SOCIAL HISTORY Never Assessed [...]
--- OUTSIDE RECORDS SUMMARY | 2017-09-17 16:04 | XMS REPORT ---
Author Author FRANCISCO MCDONNELL Organization [facility] Address [address] [place] [address] Care Team Providers Care Material Expeditor Name Role Phone FRANCISCO MCDONNELL Unavailable PROBLEMS Type Condition ICD9-CM Code [id number] Code Onset Dates Condition Status SNOMED Code Problem Bipolar 2 disorder F31.81 Active 47329106 Problem PTSD (post-traumatic stress disorder) F43.10 Active 61981967 Problem ANASTASIA (generalized anxiety disorder) F41.1 Active 90491579 Problem Chronic post-traumatic stress disorder (PTSD) F43.12 Active 036942132 Problem ADHD (attention deficit hyperactivity disorder), combined type F90.2 Active 19981506 Problem Cigarette nicotine dependence without complication F17.210 Active 09053986 Problem Borderline personality disorder in adult F60.3 Active 81416979 Problem Other chronic pain G89.29 Active 12867851 Problem Lumbago with sciatica, unspecified side M54.40 Active 805578403 ALLERGIES Unknown Allergies SOCIAL HISTORY No smoking Hx information available PLAN OF CARE VITAL SIGNS MEDICATIONS Medication Instructions Dosage Frequency Start Date End Date Duration Status Concerta 18 MG Orally for ADHD 1 tablet in the morning May, 28 days Active RESULTS No Results PROCEDURES No Known procedures IMMUNIZATIONS No Known Immunizations
--- OUTSIDE RECORDS SUMMARY | 2017-09-17 16:05 | XMS REPORT ---
Author FRANCISCO Rudolph [facility] eClinicalWorks Address Unknown Phone Unavailable Care Team Providers Care Advanced Practice Provider Name Role Phone FRANCISCO MCDONNELL CP Unavailable [...]
--- OUTSIDE RECORDS SUMMARY | 2017-09-17 16:05 | XMS REPORT ---
Author Author FRANCISCO MCDONNELL Organization [facility] Address [address] [place] [address] Care Team Providers Care Technology Professional Name Role Phone FRANCISCO MCDONNELL Unavailable PROBLEMS Type Condition ICD9-CM Code [id number] Code Onset Dates Condition Status SNOMED Code Problem Bipolar 2 disorder F31.81 Active 72797000 Problem PTSD (post-traumatic stress disorder) F43.10 Active 88246740 Problem ANASTASIA (generalized anxiety disorder) F41.1 Active 85699837 Problem ADHD (attention deficit hyperactivity disorder), combined type F90.2 Active 41219918 Problem Chronic posttraumatic stress disorder F43.12 Active 452172826 Problem Lumbago with sciatica, unspecified side M54.40 Active 592807367 Problem Borderline personality disorder in adult F60.3 Active 92947008 Problem Cigarette nicotine dependence without complication F17.210 Active 18570756 Problem Other chronic pain G89.29 Active 81265342 ALLERGIES Unknown Allergies SOCIAL HISTORY No smoking Hx information available PLAN OF CARE VITAL SIGNS MEDICATIONS Unknown Medications RESULTS No Results PROCEDURES No Known procedures IMMUNIZATIONS No Known Immunizations
--- OUTSIDE RECORDS SUMMARY | 2017-09-17 16:05 | XMS REPORT ---
Author Author DELONTE LAU [facility] Address [address] [place] [address] Care Team Providers Care Oracle Applications Analyst Name Role Phone DELONTE LAU Unavailable PROBLEMS Type Condition ICD9-CM Code EVS66-QM Code Onset Dates Condition Status SNOMED Code Problem Bipolar 2 disorder F31.81 Active 86665849 Problem PTSD (post-traumatic stress disorder) F43.10 Active 67963538 Problem ANASTASIA (generalized anxiety disorder) F41.1 Active 90634022 Problem Chronic post-traumatic stress disorder (PTSD) F43.12 Active 038247959 Problem ADHD (attention deficit hyperactivity disorder), combined type F90.2 Active 79301879 Problem Cigarette nicotine dependence without complication F17.210 Active 77102577 Problem Borderline personality disorder in adult F60.3 Active 69671582 Problem Other chronic pain G89.29 Active 37888080 Problem Lumbago with sciatica, unspecified side M54.40 Active 398618861 ALLERGIES No Information SOCIAL HISTORY Never Assessed PLAN OF CARE VITAL SIGNS MEDICATIONS Medication Instructions Dosage Frequency Start Date End Date Duration Status Hydrocodone-Acetaminophen 7.5-325 MG Orally BID X's 2 weeks, then Daily for 2 weeks, Then every other day for 2 weeks, then DC 1 tablet Jun, Jul, 28 days Active RESULTS No Results PROCEDURES [...]
--- OUTSIDE RECORDS SUMMARY | 2017-09-17 16:05 | XMS REPORT ---
Author FRANCISCO Rudolph [employer] Address Unknown Phone Unavailable Care Team Providers Care Black Belt Name Role Phone FRANCISCO MCDONNELL CP Unavailable Allergies, Adverse Reactions, Alerts Substance Reaction Event Type Penicillin V Potassium Info Not Available Drug Allergy Morphine Sulfate Info Not Available Drug Allergy Cymbalta Anger Drug Allergy Problems Problem Type Condition Code Onset Dates Condition Status Assessment ANASTASIA (generalized anxiety disorder) F41.1 Active Problem PTSD (post-traumatic stress disorder) F43.10 Active Problem ANASTASIA (generalized anxiety disorder) F41.1 Active Problem Bipolar 2 disorder F31.81 Active Assessment Bipolar 2 disorder F31.81 Active Assessment PTSD (post-traumatic stress disorder) F43.10 Active Problem Intermittent explosive disorder 312.34 Active Problem Generalized anxiety disorder 300.02 Active Medications Medication Code System Code Instructions Start Date End Date Status Dosage Prazosin HCl [facility] [address]-19 1 MG Orally Once at night for trauma nightmares 1 capsule Depakote ER [facility] [address]-02 500 MG Orally at bedtime Take 2 tablets HydrOXYzine Pamoate [facility] [address]-72 50 MG Orally 2 times a day for anxiety November 05, 2014 1 capsule Rittman Carbonate [facility] [address]-02 300 MG Orally 2 times a day Mar 25, 2015 1 capsule HydrOXYzine Pamoate [facility] [address]-56 50 MG 2 times a day for anxiety 1 capsule Naproxen [facility] [address]-83 375 MG Orally Twice a day Dec 16, 2014 1 tablet Hydrocodone-Acetaminophen [facility] [address]-80 7.5-325 MG Orally 3 times a day September 28, 2012 1 tablet as needed Prazosin HCl [facility] [address]-93 1 MG Orally Once at night for trauma nightmares Nov 26, 2014 1 capsule Cyclobenzaprine HCl [facility] 09172083710 10 MG Orally Once a day hs 1 tablet Loxapine Succinate [facility] [address]-72 10 MG Orally 1 tab in the AM and 2 tabs at HS Dec 19, 2014 1 capsule Nicoderm CQ [facility] [address]-09 14 MG/24HR Transdermal Once a day Jan 27, 2015 1 patch to skin Procedures Procedure Coding System Code Date Office Visit, Elvi Pt., Level 4 CPT-4 02301 Mar 25, 2015 Vital Signs Date/Time: Mar 25, 2015 Blood Pressure Systolic 118 mmHg Weight 177.8 lbs Height 62 in BMI 32.52 Index Blood Pressure Diastolic 77 mmHg Results No Known Results Summary Purpose [employer] Submission
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
--- OUTSIDE RECORDS SUMMARY | 2017-09-17 16:06 | XMS REPORT ---
Author Author DELONTE LAU [facility] [employer] Address Unknown Phone Unavailable Care Team Providers Care Associate Project Manager Name Role Phone DELONTE LAU CP Unavailable [...] Start Date End Date Status Dosage Hydrocodone-Acetaminophen [facility] 44781924112 7.5-325 MG TAKE ONE TABLET BY MOUTH THREE TIMES DAILY NEEDED Results No Known Results Summary Purpose eClinicalWorks Submission
--- OUTSIDE RECORDS SUMMARY | 2017-09-17 16:06 | XMS REPORT ---
Author Author DELONTE LAU [facility] Address [address] [place] [address] Care Team Providers Care Drafting Instructor Name Role Phone DELONTE LAU Unavailable PROBLEMS Type Condition ICD9-CM Code [id number] Code Onset Dates Condition Status SNOMED Code Problem Bipolar 2 disorder F31.81 Active 75951000 Problem PTSD (post-traumatic stress disorder) F43.10 Active 39832309 Problem ANASTASIA (generalized anxiety disorder) F41.1 Active 84055697 Problem Chronic post-traumatic stress disorder (PTSD) F43.12 Active 895909630 Problem ADHD (attention deficit hyperactivity disorder), combined type F90.2 Active 32934631 Problem Cigarette nicotine dependence without complication F17.210 Active 43030011 Problem Borderline personality disorder in adult F60.3 Active 15363579 Problem Other chronic pain G89.29 Active 71636080 Problem Lumbago with sciatica, unspecified side M54.40 Active 051828370 ALLERGIES No Information SOCIAL HISTORY Never Assessed PLAN OF CARE VITAL SIGNS MEDICATIONS Unknown Medications RESULTS Name Result Date Reference Range [employer] 2016-07-01 PROCEDURES Procedure Date Ordered Result Body Site No Charge July 01, 2016 IMMUNIZATIONS No Known Immunizations MEDICAL (GENERAL) [...]
--- OUTSIDE RECORDS SUMMARY | 2017-09-17 16:06 | XMS REPORT ---
Author Author DELONTE LAU [facility] Address [address] [place] [address] Care Team Providers Care Residency Coordinator Name Role Phone DELONTE LAU Unavailable PROBLEMS Type Condition ICD9-CM Code [id number] Code Onset Dates Condition Status SNOMED Code Problem Bipolar 2 disorder F31.81 Active 75036309 Problem PTSD (post-traumatic stress disorder) F43.10 Active 73956593 Problem ANASTASIA (generalized anxiety disorder) F41.1 Active 10603041 Problem Chronic post-traumatic stress disorder (PTSD) F43.12 Active 011854910 Problem ADHD (attention deficit hyperactivity disorder), combined type F90.2 Active 81541474 Problem Cigarette nicotine dependence without complication F17.210 Active 63843401 Problem Borderline personality disorder in adult F60.3 Active 41129577 Problem Other chronic pain G89.29 Active 95687797 Problem Lumbago with sciatica, unspecified side M54.40 Active 620337616 ALLERGIES No Information SOCIAL HISTORY Never Assessed [...]
--- OUTSIDE RECORDS SUMMARY | 2017-09-17 16:06 | XMS REPORT ---
Author Author DELONTE LAU [facility] eClinicalWorks Address Unknown Phone Unavailable Care Team Providers Care Class A Regional Drivers Name Role Phone DELONTE LAU CP Unavailable [...] Date Status Dosage Hydrocodone-Acetaminophen [facility] 39184215559 7.5-325 MG Orally 3 times a day 1 tablet as needed Results No Known Results Summary Purpose eClinicalWorks Submission
--- OUTSIDE RECORDS SUMMARY | 2017-09-17 16:06 | XMS REPORT ---
Author Author DELONTE LAU [facility] Address [address] [place] [address] Care Team Providers Care Watch Adjuster Name Role Phone DELONTE LAU Unavailable PROBLEMS Type Condition ICD9-CM Code CKC48-SR Code Onset Dates Condition Status SNOMED Code Problem ANASTASIA (generalized anxiety disorder) F41.1 Active 68629191 Problem Bipolar 2 disorder F31.81 Active 70203679 Problem PTSD (post-traumatic stress disorder) F43.10 Active 10240591 Problem ADHD (attention deficit hyperactivity disorder), combined type F90.2 Active 88649117 Problem Chronic posttraumatic stress disorder F43.12 Active 822438799 Problem Cigarette nicotine dependence without complication F17.210 Active 62656684 Problem Borderline personality disorder in adult F60.3 Active 54313746 Problem Lumbago with sciatica, unspecified side M54.40 Active 141264955 Problem Other chronic pain G89.29 Active 48416634 ALLERGIES Unknown Allergies SOCIAL HISTORY No smoking Hx information available PLAN OF CARE VITAL SIGNS MEDICATIONS Medication Instructions Dosage Frequency Start Date End Date Duration Status Hydrocodone-Acetaminophen 7.5-325 MG Orally 3 times a day 1 tablet as needed 8h 23 Mar, 2016 Active RESULTS No Results PROCEDURES No Known procedures IMMUNIZATIONS No Known Immunizations
--- OUTSIDE RECORDS SUMMARY | 2017-09-17 16:06 | XMS REPORT ---
Author Author SOFIE LEDEZMA [facility] eClinicalWorks Address Unknown Phone Unavailable Care Team Providers Care Reconsignment Clerk Name Role Phone SOFIE LEDEZMA CP Unavailable Allergies No Known Allergies Problems Problem Type Condition Code Onset Dates Condition Status Assessment Adjustment disorder with mixed anxiety and depressed mood F43.23 Active Assessment Intermittent explosive disorder 312.34 Active Assessment PTSD (post-traumatic stress disorder) F43.10 Active Problem PTSD (post-traumatic stress disorder) F43.10 Active Problem ANASTASIA (generalized anxiety disorder) F41.1 Active Problem Bipolar 2 disorder F31.81 Active Assessment Bipolar 2 disorder F31.81 Active Assessment Generalized anxiety disorder 300.02 Active Problem Intermittent explosive disorder 312.34 Active Problem Generalized anxiety disorder 300.02 Active Medications No Known Medications Procedures Procedure Coding System Code Date Psychotherapy, patient &/family, 45 minutes, established patient CPT-4 88198 May 01, 2015 Results No Known Results Summary Purpose eClinicalWorks Submission
--- OUTSIDE RECORDS SUMMARY | 2017-09-17 16:06 | XMS REPORT ---
Author Author FRANCISCO MCDONNELL Organization [facility] Address [address] [place] [address] Care Team Providers Care Oil And Gas Specialist Name Role Phone FRANCISCO MCDONNELL Unavailable PROBLEMS Type Condition ICD9-CM Code JAF18-RS Code Onset Dates Condition Status SNOMED Code Problem Bipolar 2 disorder F31.81 Active 82229638 Problem PTSD (post-traumatic stress disorder) F43.10 Active 60966889 Problem ANASTASIA (generalized anxiety disorder) F41.1 Active 15698118 Problem Chronic post-traumatic stress disorder (PTSD) F43.12 Active 685377136 Problem ADHD (attention deficit hyperactivity disorder), combined type F90.2 Active 56938151 Problem Cigarette nicotine dependence without complication F17.210 Active 36538170 Problem Borderline personality disorder in adult F60.3 Active 62367826 Problem Other chronic pain G89.29 Active 92682031 Problem Lumbago with sciatica, unspecified side M54.40 Active 683838326 ALLERGIES No Information SOCIAL HISTORY Never Assessed [...]
[2017-09-17 16:22] VITALS: BP 138/91
== END 2017-09-17 16:21 | disposition home or self-care (01) ==
LOC: EDUNIT# 15:52 → ER 15:53
DX: M54.6 Pain in thoracic spine (principal); I10 Essential (primary) hypertension; F41.9 Anxiety disorder, unspecified; F31.9 Bipolar disorder, unspecified; F90.9 Attention-deficit hyperactivity disorder, unspecified type; F17.210 Nicotine dependence, cigarettes, uncomplicated; Z91.5 Personal history of self-harm; Z87.59 Personal history of other complications of pregnancy, childbirth and the puerperium; Z98.890 Other specified postprocedural states; X50.1XXA Overexertion from prolonged static or awkward postures, initial encounter; Y93.E5 Activity, floor mopping and cleaning
CPT/HCPCS: 96372; 99284

== ENCOUNTER → 2017-09-18 | Outpatient (CLI) | payer MEDICAID ==
[~2017-09-18] MED LIST changes: +META800T PO; +NAPR-1071 PO
--- NOTE | 2017-09-18 17:10 | Diagnostic Imaging Report ---
INDICATION: Cough, short of air, acute bronchitis. EXAMINATION: PA and lateral views of the chest. FINDINGS: The heart size and vascularity are normal. Lungs are clear. There is no effusion. There is no acute bony abnormality. IMPRESSION: No acute abnormality is seen. Dictated by: Dictated on workstation # [id number]
== END ==
LOC: RAD 16:25
PROVIDERS: ATTEND Family Medicine
DX: J20.8 Acute bronchitis due to other specified organisms (principal)
CPT/HCPCS: 71046

== ENCOUNTER → 2018-07-18 | Outpatient (CLI) | payer MEDICAID ==
--- NOTE | 2018-07-18 12:28 | Diagnostic Imaging Report ---
CLINICAL INDICATION: Patient with neck pain and left shoulder pain between shoulders. EXAM: MRI of the cervical spine performed without IV contrast. Sequences include sagittal T2, sagittal T1, sagittal T2 fat-sat, sagittal STIR, and axial T2. COMPARISON: MRI of the cervical spine without contrast dated 07/09/2017. FINDINGS: There is no acute cervical spine fracture or dislocation. Limited visualization of the posterior fossa shows no significant abnormality. Motion artifact and flow artifact slightly obscures the cervical spinal cord. Cervical spinal cord is unremarkable with normal cord caliber and no abnormal signal. There is no significant paraspinal soft tissue abnormality. 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 C1-C2: Unremarkable. C2-C3: Unremarkable. C3-C4: Stable minimal sized posterior disc bulge with fphu-up-wcaeozog central canal narrowing. There is no significant neural foramen narrowing. C4-C5: There is stable vzzc-cn-pcomkpvs diffuse central canal narrowing. There is no significant disc bulge. There is no significant neural foramen narrowing. C5-C6: Stable hypertrophic anterior spur and mild loss of intervertebral disc height. There is stable skwy-pz-qixnupvj central canal narrowing. There are stable small bilateral uncinate spurs. There is no significant neural foramen narrowing. C6-C7: There is a mild diffuse disc bulge with slight increased size of a posterior disc bulge component. There is mild central canal narrowing which has not significantly changed. There is mild right neural foramen narrowing and no significant left neural foramen narrowing. C7-T1: Unremarkable. IMPRESSION: 1: There is no acute cervical spine fracture or dislocation. 2: There is minimal progression of degenerative disc disease, as described above. 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 Dictated by: Dictated on workstation # [id number]
== END ==
LOC: RAD 08:52
PROVIDERS: ATTEND Orthopaedic Surgery
DX: M48.02 Spinal stenosis, cervical region (principal); M47.812 Spondylosis without myelopathy or radiculopathy, cervical region; M50.21 Other cervical disc displacement, high cervical region; M50.321 Other cervical disc degeneration at C4-C5 level
CPT/HCPCS: 72141

== ENCOUNTER 2018-08-18 13:57 | Outpatient (RCR) | payer MEDICAID | END 2018-08-25 13:10 | disposition home or self-care (01) | PROVIDERS: ATTEND Orthopaedic Surgery | DX: M54.5 Low back pain (principal); M54.6 Pain in thoracic spine ==

== ENCOUNTER → 2018-10-11 | Outpatient (CLI) | payer MEDICAID ==
--- NOTE | 2018-10-11 13:32 | Diagnostic Imaging Report ---
PROCEDURE: MRI lumbar spine. TECHNIQUE: Multiplanar, multisequence MRI of the lumbar spine was performed without contrast. INDICATION: Chronic lower back pain. History of previous lumbar surgery. COMPARISON: 08/16/2012. FINDINGS: Patient is status post interval post surgical fusion at L5-S1. Evaluation of the surgical hardware is suboptimal given MRI modality and metallic susceptibility artifact. Intervertebral disc space is also obscured secondary to presence of intervertebral disc space material. Despite this, static alignment does appear grossly stable. There is mild residual grade 1 anterolisthesis at L5-S1. There is no evidence of jumped facets. Vertebral body heights are maintained. There is no evidence of acute fracture. Marrow signal is normal throughout. There is mild height loss at L4-L5. Otherwise, remaining intervertebral disc heights are well-maintained. Visualized portions of distal cord are unremarkable. Conus terminates at approximately the T12-L1 level. No abnormal intrathecal filling defects are seen. Pre-and paravertebral soft tissue structures are unremarkable. Axial images demonstrate the following: T12-L1 through L3-L4: There is no large disc bulge or focal protrusion. There is no significant spinal canal or neuroforaminal stenosis. L4-L5: There is small central posterior disc protrusion. There is however no significant spinal canal or neuroforaminal stenosis. L5-S1: Postsurgical changes as above. There is no significant spinal canal or neuroforaminal stenosis. IMPRESSION: 1. Interval postsurgical changes at L5-S1. Again, evaluation of the hardware is suboptimal given MRI modality and metallic susceptibility artifact, but static alignment at L5-S1 is largely stable. 2. Degenerative changes at the L4-L5 level, but no evidence of significant spinal canal or neuroforaminal stenosis throughout the lumbar spine. 3. No acute fracture or dislocation. Dictated by: Dictated on workstation # [id number]
== END ==
LOC: RAD 07:56
PROVIDERS: ATTEND Physician Assistant
DX: M47.816 Spondylosis without myelopathy or radiculopathy, lumbar region (principal); Z98.1 Arthrodesis status
CPT/HCPCS: 72148

== ENCOUNTER 2019-01-01 17:38 | Emergency (ER) | payer MEDICAID ==
[~2019-01-01] VITALS: Ht 157 cm; Wt 91.0 kg
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
--- NOTE | 2019-01-01 18:08 | NUR ---
call from [place] [employer] Arik, he request pt to contact him to file report
[2019-01-01 18:12] LABS: CLARITY,URINE VERY CLOUDY; COLOR,URINE YELLOW; GLUCOSE, URINE (UA) 1+ (NEGATIVE); KETONES,URINE 1+ (NEGATIVE); LEUKOCYTE ESTERASE ,URINE 1+ (NEGATIVE); NITRITE,URINE NEGATIVE (NEGATIVE); PH,URINE 5 (5-9); PROTEIN,URINE 3+ (NEGATIVE); UROBILINOGEN,URINE 1 MG/DL (NORMAL)
[2019-01-01 18:13] LABS: BACTERIA,URINE FEW /HPF; BILIRUBIN,URINE 1+ (NEGATIVE); SQUAMOUS EPITHELIAL CELL,UR 25-50 /HPF; WBC,URINE 25-50 /HPF
[2019-01-01 18:14] LABS: AMPHETAMINE SCREEN, URINE POSITIVE (NEGATIVE); BARBITURATE SCREEN URINE NEGATIVE (NEGATIVE); BENZODIAZEPINES SCREEN URINE POSITIVE (NEGATIVE); CANNABINOID SCREEN, URINE NEGATIVE (NEGATIVE); COCAINE SCREEN URINE NEGATIVE (NEGATIVE); METHADONE STAT NEGATIVE (NEGATIVE); METHAMPHETAMINE SCREEN URINE S POSITIVE (NEGATIVE); OPIATE SCREEN URINE POSITIVE (NEGATIVE); OXYCODONE STAT NEGATIVE (NEGATIVE); PROPOXYPHENE STAT NEGATIVE (NEGATIVE); TRICYCLIC ANTIDEPRESSANTS SCRE NEGATIVE (NEGATIVE)
[2019-01-01] MEDS ORDERED: KETOROLAC 60 MG/2 ML VIAL IM ONE (18:30)
--- NOTE | 2019-01-01 18:40 | NUR ---
pt to CT to obtain images
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
[2019-01-01] MEDS ORDERED: NITR-65 PO (19:23)
[2019-01-01] MEDS ORDERED: NITROFURANTOIN 100 MG (MACROBID) CAPSULE PO ONE (19:30)
--- NOTE | 2019-01-01 19:32 | NUR ---
pt states she is feeling better and pain has decreased, pt denies any needs or c/o at this time, pt self ambulates off of unit with belongings
[2019-01-01 19:33] VITALS: BP 115/87
== END 2019-01-01 19:34 | disposition home or self-care (01) ==
LOC: EDUNIT# 17:38 → ER 17:39
DX: M54.5 Low back pain (principal); M54.6 Pain in thoracic spine; I10 Essential (primary) hypertension; F31.9 Bipolar disorder, unspecified; F41.9 Anxiety disorder, unspecified; F90.9 Attention-deficit hyperactivity disorder, unspecified type; F17.210 Nicotine dependence, cigarettes, uncomplicated; Z88.6 Allergy status to analgesic agent; Y04.8XXA Assault by other bodily force, initial encounter
CPT/HCPCS: 72128; 72131; 80306; 81000; 84703; 87088; 96372

== ENCOUNTER 2019-05-14 10:46 | Emergency (ER) | payer MEDICAID ==
[~2019-05-14] VITALS: Ht 162.5 cm; Wt 82.0 kg
[~2019-05-14 10:46] MED LIST changes: +NITR-65 PO
[2019-05-14] MEDS ORDERED: ETOMIDATE IV SOLN 20 MG/10 ML VIAL IV ONE (10:47)
[2019-05-14] MEDS ORDERED: SUCCINYLCHOLINE INJ 100 MG/5 ML SYR INJ ONE (10:47)
[2019-05-14] MEDS ORDERED: MIDAZOLAM 5 MG/5 ML (VERSED) VIAL IVP ONE (10:47)
[2019-05-14] MEDS ORDERED: fentaNYL INJECTION 100 MCG/2 ML AMP INJ ONE (10:47)
[2019-05-14] MEDS ORDERED: NS IV 1000 ML 1,000 ML IV SCH (10:50)
[2019-05-14] MEDS ORDERED: PROPOFOL DRIP (ICU) 100 ML IV ONE ×2 (10:54→13:15)
[2019-05-14 11:08] LABS: RED CELL DISTRIBUTION WIDTH 12.5 % (10.0-14.5); WHITE BLOOD COUNT 8.7 10^3/uL (4.3-11.0)
[2019-05-14 11:12] LABS: BILIRUBIN,URINE NEGATIVE (NEGATIVE); CLARITY,URINE SL CLOUDY; COLOR,URINE YELLOW; GLUCOSE, URINE (UA) NEGATIVE (NEGATIVE); KETONES,URINE 1+ (NEGATIVE); LEUKOCYTE ESTERASE ,URINE NEGATIVE (NEGATIVE); NITRITE,URINE NEGATIVE (NEGATIVE); PROTEIN,URINE 2+ (NEGATIVE)
[2019-05-14 11:24] LABS: FIBRIN DEGRADATION PRODUCTS 0.31 UG/ML (0.00-0.49); PROTHROMBIN TIME PATIENT 13.4 SEC (12.2-14.7)
[2019-05-14 11:26] LABS: AMORPHOUS SEDIMENT,UR FEW AMOR URATES /LPF; BACTERIA,URINE TRACE /HPF; RBC,URINE RARE /HPF
[2019-05-14 11:27] LABS: ALANINE AMINOTRANSFERASE 32 U/L (0-55); ALBUMIN 4.6 GM/DL (3.2-4.5); ALKALINE PHOSPHATASE 55 U/L (40-136); BILIRUBIN,DIRECT 0.1 MG/DL (0.0-0.3); BILIRUBIN,INDIRECT 0.2 MG/DL; BILIRUBIN,TOTAL 0.3 MG/DL (0.1-1.0); BUN/CREATININE RATIO 11; CALCIUM 9.4 MG/DL (8.5-10.1); CARBON DIOXIDE 16 MMOL/L (21-32); CHLORIDE 110 MMOL/L (98-107); GFR ESTIMATED 31; GLUCOSE 143 MG/DL (70-105); MAGNESIUM 2.1 MG/DL (1.6-2.4); PHOSPHORUS 3.9 MG/DL (2.3-4.7); POTASSIUM 5.8 MMOL/L (3.6-5.0); SODIUM 141 MMOL/L (135-145); TOTAL PROTEIN 7.5 GM/DL (6.4-8.2)
[2019-05-14 11:27] LABS: HYALINE CASTS, URINE RARE /LPF
[2019-05-14 11:29] LABS: AMPHETAMINE SCREEN, URINE NEGATIVE (NEGATIVE); BARBITURATE SCREEN URINE NEGATIVE (NEGATIVE); BENZODIAZEPINES SCREEN URINE POSITIVE (NEGATIVE); CANNABINOID SCREEN, URINE NEGATIVE (NEGATIVE); COCAINE SCREEN URINE NEGATIVE (NEGATIVE); METHADONE STAT NEGATIVE (NEGATIVE); METHAMPHETAMINE SCREEN URINE S NEGATIVE (NEGATIVE); OPIATE SCREEN URINE POSITIVE (NEGATIVE); OXYCODONE STAT NEGATIVE (NEGATIVE); PROPOXYPHENE STAT NEGATIVE (NEGATIVE); TRICYCLIC ANTIDEPRESSANTS SCRE NEGATIVE (NEGATIVE)
[2019-05-14] MEDS ORDERED: HOLD METFORMIN - RECEIVED CONTRAST 20 ML VIAL IV SCH (11:45)
[2019-05-14] MEDS ORDERED: NS 100 ML (IVPB) BAG IV ONE (11:45)
[2019-05-14] MEDS ORDERED: IOHEXOL 350 MG/ML 100 ML (OMNIPAQUE 350) VIAL IV ONE (11:45)
--- NOTE | 2019-05-14 11:46 | Diagnostic Imaging Report ---
PROCEDURE: CT head and CT cervical spine without contrast. TECHNIQUE: Multiple contiguous axial images were obtained through the brain and cervical spine without the use of intravenous contrast. Sagittal and coronal reformations through the cervical spine were then performed. Auto Exposure Controls were utilized during the CT exam to meet ALARA standards for radiation dose reduction. INDICATION: Fall and unresponsive. COMPARISON: No prior studies are available for comparison. CT HEAD: The ventricles and sulci are within normal limits. No sulcal effacement or midline shift is identified. No acute intra-axial or extra-axial hemorrhage is detected. Cisterns are patent. Visualized paranasal sinuses are clear. IMPRESSION: No acute intracranial process is detected. CT CERVICAL SPINE: Alignment is normal. There is significant degenerative disc disease at the C5-C6 level with disc space narrowing and marginal spurring. No fracture is identified. Odontoid is intact. Patient is intubated. NG tube is also in place. IMPRESSION: Cervical spondylosis. No acute fracture is detected. Dictated by: Dictated on workstation # [id number]
--- NOTE | 2019-05-14 12:01 | ED Neurological Problem ---
General Chief Complaint: Unresponsive Stated Complaint: UNRESPONSIVE Source: family, EMS Exam Limitations: clinical condition History of Present Illness Date Seen by Provider: May 14, 2019 Time Seen by Provider: 10:46 Initial Comments This 39-year-old female patient arrived to the emergency room via EMS with significantly altered mental status. She had minimal response to pain and no response to voice or other stimulation. She had snoring respirations. Patient was found by her father with whom she lives when he returned home from work. She had significant altered mental status. She tried to get up and walk and fell over backward. Father presumed that she was intoxicated. Based on his report she "likes her drugs". She abuses both pharmaceuticals and illicit drugs. When patient did not get up and respond, father activated EMS. Vital signs were stable but she remained unresponsive after 2 mg of Narcan administered by EMS. Patient was immediately seen and evaluated and prepared for intubation. Due to body habitus and short neck, C-spine precautions were performed bimanual protection and neck rolls rather than c-collar. Fingerstick blood sugar was in the 130s. Father stated patient did shake a bit after she fell. She has no history of seizures per family. There is a contusion on her forehead which would suggest prior head injury. There was evidence of emesis on her clothes. Allergies and Home Medications Allergies Coded Allergies: NKANo Known Allergies (Verified Allergy, Unknown, 12/30/05) morphine (Unverified Allergy, Unknown, 02/04/16) Home Medications Baclofen 10 Mg Tablet, 20 MG PO TID, (Reported) Divalproex Sodium 500 Mg Tab.er.24h, 500 MG PO HS, (Reported) Escitalopram Oxalate 10 Mg Tablet, 10 MG PO DAILY, (Reported) Hydrocodone Bit/Acetaminophen 1 Each Tablet, 1 TAB PO TID PRN for PAIN, (Reported) Hydroxyzine Pamoate 50 Mg Capsule, 50 MG PO BID PRN for ANXIETY, (Reported) [place] Carbonate 300 Mg Capsule, 300 MG PO HS, (Reported) Loxapine Succinate 10 Mg Capsule, 20 MG PO HS, (Reported) TAKES 2 (10 MG) CAPSULES Metaxalone 800 Mg Tablet, 800 MG PO Q8H PRN for PAIN-MODERATE TO SEVERE Prescribed by: HANS WEIR on 09/17/17 1602 Naproxen 500 Mg Tablet, 500 MG PO BID PRN for PAIN-MODERATE TO SEVERE Prescribed by: HANS WEIR on 09/17/17 1602 Nitrofurantoin Monohyd/M-Cryst 100 Mg Capsule, 1 TAB PO BID Prescribed by: JENN GOINS on 01/01/19 192 Prazosin HCl 1 Mg Capsule, 1 MG PO HS PRN for TRAMATIC NIGHTMARES, (Reported) Patient Home Medication List Home Medication List Reviewed: Yes Review of Systems Review of Systems Constitutional: see HPI Eyes: No Symptoms Reported Ears, Nose, Mouth, Throat: no symptoms reported Respiratory: no symptoms reported Cardiovascular: no symptoms reported Gastrointestinal: see HPI Genitourinary: no symptoms reported : No Musculoskeletal: see HPI Skin: see HPI Psychiatric/Neurological: See HPI Endocrine: No Symptoms Reported Hematologic/Lymphatic: No Symptoms Reported Past Ssolrsb-Xcxbff-Ephhoj Hx Past Med/Social Hx: Reviewed and Corrections made Patient Social History Recreational Drug Use: Yes Drug of Choice: methamphetamine Type Used: Cigarettes 2nd Hand Smoke Exposure: Yes Recent Hopitalizations: No Immunizations Up To Date Tetanus Booster (TDap): Unknown Past Medical History Surgeries: Yes (BACK) Section Respiratory: No Cardiac: Yes Hypertension Neurological: Yes Gastrointestinal: No Musculoskeletal: Yes Chronic Back Pain Endocrine: No Cancer: No Psychosocial: Yes (history of polysubstance abuse) ADD/ADHD, Anxiety, Suicide Attempts, Bipolar, Depression Integumentary: No Blood Disorders: No Physical Exam Vital Signs Vital Signs - First Documented 05/14/19 05/14/19 05/14/19 11:02 11:04 12:28 Temp 36.0 Pulse 67 Resp 8 B/P (MAP) 171/98 Pulse Ox 100 FiO2 100 Capillary Refill : Height, Weight, BMI Height: 5'4" Weight: 170lbs. oz. 77.250987wb; 36.00 BMI Method:Stated General Appearance: WD/WN, other (unresponsive) HEENT: normal ENT inspection, pharynx normal, other (pupils mildly dilated and sluggish, apparent contusion on the forehead) Neck: supple, normal inspection Respiratory: lungs clear, normal breath sounds, no respiratory distress, no accessory muscle use, other (snoring respirations with patent airway) Cardiovascular: regular rate, rhythm, no edema, no murmur Gastrointestinal: normal bowel sounds, soft Extremities: normal inspection, no pedal edema Neurologic/Psychiatric: other (unresponsive, did move all 4 extremities with EMS. Minimal response to pain) Skin: normal color, warm/dry, ecchymosis (forehead) Focused Exam Lactate Level 05/14/19 11:00: Lactic Acid Level 2.05*H Lactic Acid Level Laboratory Tests Test 05/14/19 11:00 Lactic Acid Level 2.05 MMOL/L (0.50-2.00) *H Procedures/Interventions Date of ETT Placement: May 14, 2019 Time of ETT Placement: 11:02 Intubation Method: orotracheal Tube Size: 7.5 Medications: Etomidate, Propofol, Succinylcholine Positive End Tide CO2: Yes Breath Sounds after Intubation: bilateral-equal Post Intubation Xray: Yes Position was confirmed by capnography and auscultation. Patient later had CT and tube had moved into the right mainstem bronchus on CT with absence of breath sounds on the left on repeat examination. Tube was backed out 3 cm. Breath sounds returned and repeat chest x-ray showed the tube in good position. Suture Size: 4-0 Progress/Results/Core Measures Results/Orders Lab Results Laboratory Tests Test 05/14/19 10:45 05/14/19 10:50 05/14/19 11:00 Range/Units Urine Color YELLOW Urine Clarity SL CLOUDY Urine pH 6.0 5-9 Urine Specific [place] 1.015 L 1.016-1.022 Urine Protein 2+ H NEGATIVE Urine Glucose (UA) NEGATIVE NEGATIVE Urine Ketones 1+ H NEGATIVE Urine Nitrite NEGATIVE NEGATIVE Urine Bilirubin NEGATIVE NEGATIVE Urine Urobilinogen 0.2 < = 1.0 MG/DL Urine Leukocyte Esterase NEGATIVE NEGATIVE Urine RBC (Auto) TRACE-L NEGATIVE Urine RBC RARE /HPF Urine WBC 2-5 /HPF Urine Squamous Epithelial Cells 2-5 /HPF Urine Crystals PRESENT H /LPF Urine Amorphous Sediment FEW ADONAY URATES H /LPF Urine Bacteria TRACE /HPF Urine Casts PRESENT /LPF Urine Hyaline Casts RARE /LPF Urine Mucus SMALL H /LPF Urine Culture Indicated YES Urine Opiates Screen POSITIVE H NEGATIVE Urine Oxycodone Screen NEGATIVE NEGATIVE Urine Methadone Screen NEGATIVE NEGATIVE Urine Propoxyphene Screen NEGATIVE NEGATIVE Urine Barbiturates Screen NEGATIVE NEGATIVE Ur Tricyclic Antidepressants Screen NEGATIVE NEGATIVE Urine Phencyclidine Screen NEGATIVE NEGATIVE Urine Amphetamines Screen NEGATIVE NEGATIVE Urine Methamphetamines Screen NEGATIVE NEGATIVE Urine Benzodiazepines Screen POSITIVE H NEGATIVE Urine Cocaine Screen NEGATIVE NEGATIVE Urine Cannabinoids Screen NEGATIVE NEGATIVE White Blood Count 8.7 4.3-11.0 10^3/uL Red Blood Count 4.37 4.35-5.85 10^6/uL Hemoglobin 15.0 11.5-16.0 G/DL Hematocrit 45 35-52 % Mean Corpuscular Volume 103 H 80-99 FL Mean Corpuscular Hemoglobin 34 25-34 PG Mean Corpuscular Hemoglobin Concent 33 32-36 G/DL Red Cell Distribution Width 12.5 10.0-14.5 % Platelet Count 172 130-400 10^3/uL Mean Platelet Volume 11.0 H 7.4-10.4 FL Prothrombin Time 13.4 12.2-14.7 SEC INR Comment 1.0 0.8-1.4 Activated Partial Thromboplast Time 24 24-35 SEC Fibrinogen 418 221-496 MG/DL D-Dimer 0.31 0.00-0.49 UG/ML Sodium Level 141 135-145 MMOL/L Potassium Level 5.8 H 3.6-5.0 MMOL/L Chloride Level 110 H 98-107 MMOL/L Carbon Dioxide Level 16 L 21-32 MMOL/L Anion Gap 15 H 5-14 MMOL/L Blood Urea Nitrogen 19 H 7-18 MG/DL Creatinine 1.80 H 0.60-1.30 MG/DL Estimat Glomerular Filtration Rate 31 BUN/Creatinine Ratio 11 Glucose Level 143 H 70-105 MG/DL Calcium Level 9.4 8.5-10.1 MG/DL Phosphorus Level 3.9 2.3-4.7 MG/DL Magnesium Level 2.1 1.6-2.4 MG/DL Total Bilirubin 0.3 0.1-1.0 MG/DL Direct Bilirubin 0.1 0.0-0.3 MG/DL Indirect Bilirubin 0.2 MG/DL Aspartate Amino Transf (AST/SGOT) 22 5-34 U/L Alanine Aminotransferase (ALT/SGPT) 32 0-55 U/L Alkaline Phosphatase 55 40-136 U/L Total Protein 7.5 6.4-8.2 GM/DL Albumin 4.6 H 3.2-4.5 GM/DL Serum Test, Qualitative NEGATIVE NEGATIVE Serum Alcohol < 10 <10 MG/DL Lactic Acid Level 2.05 *H 0.50-2.00 MMOL/L My Orders Orders - KVNG HERRMANN MD Ct Head/Cervical Spine Wo (1/20/20 10:48) Cbc No Diff (05/14/19 10:48) Basic Metabolic Panel (05/14/19 10:48) Fibrin Degradation Products (05/14/19 10:48) Lactic Acid Analyzer (05/14/19 10:48) Phosphorus (05/14/19 10:48) Alcohol (05/14/19 10:48) Protime With Inr (05/14/19 10:48) Partial Thromboplastin Time (05/14/19 10:48) Fibrinogen (05/14/19 10:48) Liver Panel (05/14/19 10:48) Drug Screen Stat (Urine) (05/14/19 10:48) Magnesium (05/14/19 10:48) Hcg,Qualitative Serum (05/14/19 10:48) Chest 1 View, Ap/Pa Only (05/14/19 10:48) End Tidal Co2 (05/14/19 10:48) Monitor-Rhythm Ecg Trace Only (05/14/19 10:48) Ed Iv/Invasive Line Start (05/14/19 10:48) Ua Culture If Indicated (05/14/19 10:48) Ns Iv 1000 Ml (Sodium Chloride 0.9%) (05/14/19 10:50) Propofol Drip (Icu) (Diprivan Drip (Icu) (05/14/19 10:54) Urine Culture (05/14/19 10:45) Ct Chest/Abdomen/Pelvis W (05/14/19 11:38) Iohexol Injection (Omnipaque 350 Mg/Ml 1 (05/14/19 11:45) Received Contrast (Hold Metformin- Contr (05/14/19 11:45) Ns (Ivpb) (Sodium Chloride 0.9% Ivpb Bag (05/14/19 11:45) Ns Iv 1000 Ml (Sodium Chloride 0.9%) (05/14/19 12:13) Sputum Culture (05/14/19 13:16) Ventilator Settings Order (05/14/19 13:16) Propofol Drip (Icu) (Diprivan Drip (Icu) (05/14/19 13:15) Etomidate Injection (Amidate Injection) (05/14/19 10:47) Fentanyl Injection (Sublimaze Injection (05/14/19 10:47) Midazolam Injection (Versed Injection) (05/14/19 10:47) Succinylcholine Injection (Succinylcholi (05/14/19 10:47) Medications Given in ED Current Medications Medications Dose Ordered Sig/Annalee Route Start Time Stop Time Status Last Admin Dose Admin Iohexol 100 ml ONCE ONCE IV 05/14/19 11:45 05/14/19 11:46 DC 05/14/19 11:45 100 ML Propofol 100 ml @ ud STK-MED ONCE IV 05/14/19 10:54 05/14/19 10:58 DC 05/14/19 11:04 20 MLS/HR Sodium Chloride 100 ml ONCE ONCE IV 05/14/19 11:45 05/14/19 11:46 DC 05/14/19 11:45 80 ML Vital Signs/I&O 05/14/19 05/14/19 05/14/19 11:02 11:04 12:28 Temp 36.0 Pulse 67 64 Resp 8 B/P (MAP) 171/98 166/93 (117) Pulse Ox 100 FiO2 100 Progress Progress Note : Time: 12:43 Progress Note Patient was immediately seen and evaluated. Because she was unresponsive intubation was felt necessary to protect her airway. C-collar would not fit her neck properly. Manual C-spine precautions were followed and towel rolls were used to assist in protection. Intubation was performed by this provider using succinylcholine and etomidate. Further sedation was provided with a propofol drip. She did require fentanyl 100 g and Versed 4 mg for further sedation. Propofol drip was titrated up to response. 2 L of IV fluid were infused along with a small quantity of IV fluids from EMS. She is found to have some renal insufficiency and mild hyperkalemia which is being treated with IV fluids. Type II trauma activation was paged and patient was taken to CT. CT showed no serious injuries. Trauma surgeon was notified of the trauma activation. I discussed the situation with patient's father who is next of kin. His name is Blake [employer]. he can be contacted at [phone]. He requested that she be transferred to [facility] in [place] because [facility] in [place] is on diversion. Diagnostic Imaging Diagonstic Imaging: CT Plain Films/CT/US/NM/MRI: c-spine, head Comments CT head and C-spine viewed by me and report reviewed. See report below: NAME: LILLIANA PLUMMER [facility] REC#: [id number] PT STATUS: REG ER : 1980 PHYSICIAN: KVNG HERRMANN MD ADMIT DATE: 05/14/19/ER Draft Date of Exam:05/14/19 CT HEAD/CERVICAL SPINE WO PROCEDURE: CT head and CT cervical spine without contrast. TECHNIQUE: Multiple contiguous axial images were obtained through the brain and cervical spine without the use of intravenous contrast. Sagittal and coronal reformations through the cervical spine were then performed. Auto Exposure Controls were utilized during the CT exam to meet ALARA standards for radiation dose reduction. INDICATION: Fall and unresponsive. COMPARISON: No prior studies are available for comparison. CT HEAD: The ventricles and sulci are within normal limits. No sulcal effacement or midline shift is identified. No acute intra-axial or extra-axial hemorrhage is detected. Cisterns are patent. Visualized paranasal sinuses are clear. IMPRESSION: No acute intracranial process is detected. CT CERVICAL SPINE: Alignment is normal. There is significant degenerative disc disease at the C5-C6 level with disc space narrowing and marginal spurring. No fracture is identified. Odontoid is intact. Patient is intubated. NG tube is also in place. IMPRESSION: Cervical spondylosis. No acute fracture is detected. Dictated on workstation # [id number] Dict: 05/14/19 1142 Trans: 05/14/19 1146 [facility] [id number] Interpreted by: SINDHU SHER MD Diagonstic Imaging: CT Plain Films/CT/US/NM/MRI: chest, abdomen, pelvis Comments CT chest, abdomen and pelvis viewed by me and report reviewed. See report below: NAME: LILLIANA PLUMMER [facility] REC#: [id number] PT STATUS: REG ER : 1980 PHYSICIAN: KVNG HERRMANN MD ADMIT DATE: 05/14/19/ER Draft Date of Exam:05/14/19 CT CHEST/ABDOMEN/PELVIS W EXAMINATION: CT Chest, Abdomen and Pelvis with intravenous contrast. TECHNIQUE: Multiple contiguous axial images were obtained through the chest, abdomen and pelvis after the uneventful administration of intravenous contrast. All CT scans use one or more of the following dose optimizing techniques: automated exposure control, MA and/or KvP adjustment based on a patient size and exam type, or iterative reconstruction. HISTORY: Trauma COMPARISON: None available. FINDINGS: There is right mainstem bronchus intubation, retracted under follow-up radiograph. There is left lower lobe and upper lobe partial atelectasis. Gastric tube is present. Right lung is clear without edema or pneumonia. No pneumothorax is seen. No pleural effusion. Heart size is normal. No pericardial effusion. Aorta is normal in caliber. There is no axillary or supraclavicular lymphadenopathy. There is no mediastinal lymphadenopathy. Liver is mildly steatotic. There is no biliary ductal dilation. Gallbladder is normal. Pancreas is normal. Spleen is normal. Adrenal glands are normal. The kidneys are normal. There is no hydronephrosis. Reina catheter is present within the urinary bladder. A tampon is present within the vagina. A rectal catheter is present. There are no dilated loops of large or small bowel. No obstruction or inflammation. No free fluid or air. No abdominal or pelvic lymphadenopathy. Aorta is normal in caliber without aneurysm. There are no suspicious osseous lesions. There is L5-S1 instrumented fusion. IMPRESSION: 1. No acute traumatic injury in the chest, abdomen or pelvis. Dictated on workstation # [id number] Dict: 05/14/19 1224 Trans: 05/14/19 1232 [facility] [id number] Interpreted by: SIMONE BROCK MD Diagonstic Imaging: Xray Plain Films/CT/US/NM/MRI: chest Comments Chest x-ray viewed by me and report reviewed. See report below: NAME: LILLIANA PLUMMER [facility] REC#: [id number] PT STATUS: REG ER : 1980 PHYSICIAN: KVNG HERRMANN MD ADMIT DATE: 05/14/19/ER Draft Date of Exam:05/14/19 CHEST 1 VIEW, AP/PA ONLY HISTORY: Tube adjustment. TECHNIQUE: Frontal view of the chest. COMPARISON: 09/18/2017. FINDINGS: The endotracheal tube is approximately 4 cm from the mary. The enteric tube crosses the [id number]. The cardiac silhouette is mildly prominent, which may be exaggerated by the low lung volumes and supine AP technique. There is atelectasis in the left lower lobe. The right lung is incompletely included on the exam. No significant pleural effusion or pneumothorax is seen. IMPRESSION: 1. Endotracheal tube is approximately 4 cm above the mary. 2. Left basilar atelectasis. Dictated on workstation # [id number] Dict: 05/14/19 1226 Trans: 05/14/19 1232 [id number] Interpreted by: SHORTY ORONA MD Critical Care Note Critical Care Start Time: 10:46 Stop Time: 13:39 Total Time (minutes) 173 Departure Impression Primary Impression: Unresponsive Additional Impressions: Fall on same level Qualified Codes: W18.30XA - Fall on same level, unspecified, initial encounter Head injury Qualified Codes: S09.90XA - Unspecified injury of head, initial encounter Polysubstance abuse Acute kidney injury Hyperkalemia Disposition: 02 XFER SHT-TRM HOSP Condition: Improved Transfer Transfer Reason: Diversion Time Spoke to Accepting Phy: 12:30 Transfer Time: 13:39 Transfer Facility: Transfer accepted by Dr. Bacon at [facility] in [place]. Patient will be transferred to the ER because of trauma. Method of Transfer: Air Departure-Patient Inst. Referrals: DELONTE LAU MD (PCP/Family) Primary Care Physician Copy Copies To 1: DELONTE LAU MD, JOSHUA T MD May 14, 2019 12:01
[2019-05-14] MEDS ORDERED: NS IV 1000 ML 1,000 ML IV ONE (12:13)
--- NOTE | 2019-05-14 12:33 | Diagnostic Imaging Report ---
HISTORY: Tube adjustment. TECHNIQUE: Frontal view of the chest. COMPARISON: 09/18/2017. FINDINGS: The endotracheal tube is approximately 4 cm from the mary. The enteric tube crosses the [id number]. The cardiac silhouette is mildly prominent, which may be exaggerated by the low lung volumes and supine AP technique. There is atelectasis in the left lower lobe. The right lung is incompletely included on the exam. No significant pleural effusion or pneumothorax is seen. IMPRESSION: 1. Endotracheal tube is approximately 4 cm above the mary. 2. Left basilar atelectasis. Dictated by: Dictated on workstation # [id number]
--- NOTE | 2019-05-14 12:33 | Diagnostic Imaging Report ---
EXAMINATION: CT Chest, Abdomen and Pelvis with intravenous contrast. TECHNIQUE: Multiple contiguous axial images were obtained through the chest, abdomen and pelvis after the uneventful administration of intravenous contrast. All CT scans use one or more of the following dose optimizing techniques: automated exposure control, MA and/or KvP adjustment based on a patient size and exam type, or iterative reconstruction. HISTORY: Trauma COMPARISON: None available. FINDINGS: There is right mainstem bronchus intubation, retracted under follow-up radiograph. There is left lower lobe and upper lobe partial atelectasis. Gastric tube is present. Right lung is clear without edema or pneumonia. No pneumothorax is seen. No pleural effusion. Heart size is normal. No pericardial effusion. Aorta is normal in caliber. There is no axillary or supraclavicular lymphadenopathy. There is no mediastinal lymphadenopathy. Liver is mildly steatotic. There is no biliary ductal dilation. Gallbladder is normal. Pancreas is normal. Spleen is normal. Adrenal glands are normal. The kidneys are normal. There is no hydronephrosis. Reina catheter is present within the urinary bladder. A tampon is present within the vagina. A rectal catheter is present. There are no dilated loops of large or small bowel. No obstruction or inflammation. No free fluid or air. No abdominal or pelvic lymphadenopathy. Aorta is normal in caliber without aneurysm. There are no suspicious osseous lesions. There is L5-S1 instrumented fusion. IMPRESSION: 1. No acute traumatic injury in the chest, abdomen or pelvis. Dictated by: Dictated on workstation # [id number]
[2019-05-14 13:37] VITALS: BP 188/109
--- NOTE | 2019-05-14 14:00 | NUR ---
Pt arrival to ED via EMS at 1043 1046 trauma level 2 paged 1050 20 g IV in LAC established by Bradley Lemus RN 1053 16 fr pierre inserted by Hanny Ballard RN [address] c-collar on pt; towel rolls placed for c-spine 1100 Boris from anesthesia present 1100 Etomidate 20mg administered 1101 Succs 100mg administered 1101 Pt's O2 sat 100% [address] Gonzáles; + color, BBS, 7.5 tube, 24 cm at lips 1104 propofol started at 40mcg/kg/min 1106 pt placed on vent 1107 16 fr OG tube placed by Bradley Lemus RN 1108 20 g IV in RAC established by this nurse 1111 propofol increased to 50mcg/kg/min 1114 4mg versed administered 1114 100mcg fentanyl administered [address] with this nurse and Hamzah from [facility] 1116 liter warm NS started 1135 propofol increased to 60mcg/kg/min [address] 1215 liter warm NS started 1337 pt departed ED via [facility]
[2019-05-15] MEDS ORDERED: NS IV 1000 ML 1,000 ML ONE (07:01)
== END 2019-05-14 13:39 | disposition short-term general hospital (02) ==
LOC: EDUNIT# 10:46 → ER 10:46
DX: S09.90XA Unspecified injury of head, initial encounter (principal); R40.20 Unspecified coma; N17.9 Acute kidney failure, unspecified; E87.5 Hyperkalemia; F15.10 Other stimulant abuse, uncomplicated; F19.10 Other psychoactive substance abuse, uncomplicated; I10 Essential (primary) hypertension; F90.9 Attention-deficit hyperactivity disorder, unspecified type; F41.9 Anxiety disorder, unspecified; F31.9 Bipolar disorder, unspecified; Z88.5 Allergy status to narcotic agent; Z77.22 Contact with and (suspected) exposure to environmental tobacco smoke (acute) (chronic); W18.39XA Other fall on same level, initial encounter
CPT/HCPCS: 31500; 36415; 51702; 70450; 71045; 71260; 72125; 74177; 80048; 80076; 80306; 80320; 81000; 83605; 83735; 84100; 84703; 85027; 85379; 85384; 85610; 85730; 87070; 87088; 87205; 93041; 96360

== ENCOUNTER 2021-01-20 23:45 | Emergency (ER) | payer MEDICAID ==
[~2021-01-20 23:45] MED LIST changes: +ESCI-2 PO; -ESCI10TA55 PO
== END 2021-01-20 23:58 ==
LOC: EDUNIT# 23:45 → ER 23:47
DX: R40.4 Transient alteration of awareness (principal)

== ENCOUNTER 2021-11-11 23:45 | Emergency (ER) | payer MEDICAID ==
[~2021-11-11] VITALS: Ht 160 cm; Wt 55.0 kg
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
[2021-11-12] MEDS ORDERED: BACITRACIN OINTMENT 28 GM TUBE TOP STA (00:18)
[2021-11-12] MEDS ORDERED: KETOROLAC 30 MG/ML VIAL IM STA (00:18)
[2021-11-12] MEDS ORDERED: TETANUS,DIPTH,PERTUSS P/F (BOOSTRIX) 0.5 ML VIAL IM ONE (00:45)
[2021-11-12 01:00] VITALS: BP 161/112
== END 2021-11-12 00:59 | disposition home or self-care (01) ==
LOC: EDUNIT# 23:45 → ER 23:50
DX: T23.272A Burn of second degree of left wrist, initial encounter (principal); T20.17XA Burn of first degree of neck, initial encounter; T21.11XA Burn of first degree of chest wall, initial encounter; T20.16XA Burn of first degree of forehead and cheek, initial encounter; T31.0 Burns involving less than 10% of body surface; Z23 Encounter for immunization; Z28.310 Unvaccinated for COVID-19; X12.XXXA Contact with other hot fluids, initial encounter
CPT/HCPCS: 90715; 99284

== ENCOUNTER 2021-11-14 18:56 | Emergency (ER) | payer MEDICAID ==
[~2021-11-14] VITALS: Ht 160 cm; Wt 54.4 kg
[2021-11-14] MEDS ORDERED: RX-MUPIROCIN (BACTROBAN) 2% OINT 22 GM TUBE TOP STA (19:54)
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
[2021-11-14] MEDS ORDERED: HYDROcodone/APAP 7.5 MG/325 MG (LORTAB, LORCET PLUS) TABLET PO ONE (20:00)
[2021-11-14] MEDS ORDERED: ACHD5005 PO (20:12)
[2021-11-14] MEDS ORDERED: MUPI22OI2 TP (20:12)
[2021-11-14 20:17] VITALS: BP 132/87
== END 2021-11-14 20:17 | disposition home or self-care (01) ==
LOC: EDUNIT# 18:56 → ER 18:59
DX: T20.29XA Burn of second degree of multiple sites of head, face, and neck, initial encounter (principal); T22.212A Burn of second degree of left forearm, initial encounter; T22.252A Burn of second degree of left shoulder, initial encounter; X16.XXXA Contact with hot heating appliances, radiators and pipes, initial encounter
CPT/HCPCS: 99283